=== PATIENT | female | born 1990 | race Hispanic/Latino ===

== ENCOUNTER 2017-12-23 08:37 | Emergency (ER) | payer OTHER, SELFPAY ==
[2017-12-23] MEDS ORDERED: NA CHLORIDE 0.9% 1,000 ML ONE (09:00)
[2017-12-23] MEDS ORDERED: KETOROLAC 30 MG/ML INJ ONE (09:05)
[2017-12-23 09:20] LABS: Absolute Lymphocytes (CBC) 0.8 K/uL (0.7-4.9); Absolute Monocytes 0.8 K/uL (0.1-1.3); Absolute Neutrophil 10.5 K/uL (1.8-8.0); Basophils % 0.2 % (0-1.3); Eosinophils % 0.7 % (0-4.4); Hematocrit 42.7 % (36.0-45.0); Lymphocytes % 6.6 % (15.3-44.8); MCH 29.4 pg (27.0-35.0); MCV 87.4 fL (80-100); Monocytes % 6.9 % (3.3-12.3); RBC Red Blood Cell Count 4.89 M/uL (3.86-4.86)
[2017-12-23 09:35] LABS: Potassium 3.4 mmol/L (3.5-5.1)
[2017-12-23 09:39] LABS: Urine Blood NEGATIVE (NEG); Urine Glucose NEGATIVE (NEG); Urine Protein 1+ (NEG); Urine Specific Gravity 1.025 (1.005-1.030)
--- NOTE | 2017-12-23 10:39 | RAD REPORT ---
EXAM DESCRIPTION: CT - Stone Protocol - 12/23/2017 9:25 am CLINICAL HISTORY: Abdominal pain/left lower quadrant pain for 3 days COMPARISON: None TECHNIQUE: Computed axial tomography of the abdomen pelvis was obtained without oral or IV contrast. Lack of IV and oral contrast limits evaluation of solid organs, bowel, and vessels. Coronal reformat carol images were obtained and reviewed. All CT scans are performed using dose optimization technique as appropriate and may include automated exposure control or mA/KV adjustment according to patient size. FINDINGS: Multiple, small bilateral renal calculi are present. Hydronephrosis is not seen. A 1 danielle meter calculus is suspected within the mid left ureter. The liver, spleen, pancreas and adrenals appear grossly normal There is no evidence of diverticulitis. The appendix appears normal Small nodular densities are within posterior for of within the ischial rectal fossa which likely is b enign. IMPRESSION: 1 millimeter nonobstructing left ureteral calculus. Small bilateral renal calculi
[2017-12-23 10:55] LABS: Platelet Estimate ADEQ; Urine White Blood Cell Casts OK
--- NOTE | 2017-12-23 10:56 | EDPHYS ---
Physician Documentation [facility] Name: Manuela Romo Age: 27 yrs Sex: Female : 1990 Arrival Date: 12/23/2017 Time: 08:39 Bed 5 Private MD: Louis Painting M ED Physician Mikey Frost HPI: 12/23 08:55 This 27 yrs old Female presents to ER via Ambulatory with complaints of kb Possible Kidney Stone. 08:55 The patient complains of pain in the left flank. The pain does not radiate. Onset: The kb symptoms/episode began/occurred 2 day(s) ago. Modifying factors: The symptoms are alleviated by nothing. the symptoms are aggravated by palpation/percussion. Associated signs and symptoms: Pertinent positives: nausea, vomiting. Severity of pain: At its worst the pain was moderate in the emergency department the pain is unchanged. The patient has experienced a previous episode, but today's symptoms are worse. The patient has been recently seen by a physician:. Pt states abd cramping started 2 days ago and now the pain is in left flank. States she has had a kidney stone in the past and it feels the same. Reports she has been vomiting once every morning for a month. Went to pcp 2 days ago and was told to go to [facility]. Saw Dr Cantrell and was told to come to the ER for continued symptoms. Historical: - Allergies: 08:52 No Known Allergies; hb - Home Meds: 08:52 fluoxetine 20 mg Oral cap [Active]; hb - PMHx: 08:52 None; hb - PSHx: 08:52 None; hb - Immunization history:: Adult Immunizations up to date. - Social history:: Smoking status: Patient/guardian denies using tobacco. - Ebola Screening: : No symptoms or risks identified at this time. ROS: 08:55 Constitutional: Negative for fever, chills, and weight loss, Cardiovascular: Negative kb for chest pain, palpitations, and edema, Respiratory: Negative for shortness of breath, cough, wheezing, and pleuritic chest pain, MS/Extremity: Negative for injury and deformity, Skin: Negative for injury, rash, and discoloration, Neuro: Negative for headache, weakness, numbness, tingling, and seizure. 08:55 Abdomen/GI: Positive for nausea and vomiting, Negative for abdominal pain, diarrhea, constipation, abdominal cramps, abdominal distension, anorexia. 08:55 Back: Positive for flank pain, on the left. Exam: 08:55 Constitutional: This is a well developed, well nourished patient who is awake, alert, kb and in no acute distress. Head/Face: Normocephalic, atraumatic. Chest/axilla: Normal chest wall appearance and motion. Nontender with no deformity. No lesions are appreciated. Cardiovascular: Regular rate and rhythm with a normal S1 and S2. No gallops, murmurs, or rubs. Normal PMI, no JVD. No pulse deficits. Respiratory: Lungs have equal breath sounds bilaterally, clear to auscultation and percussion. No rales, rhonchi or wheezes noted. No increased work of breathing, no retractions or nasal flaring. Abdomen/GI: Soft, non-tender, with normal bowel sounds. No distension or tympany. No guarding or rebound. No evidence of tenderness throughout. Skin: Warm, dry with normal turgor. Normal color with no rashes, no lesions, and no evidence of cellulitis. MS/ Extremity: Pulses equal, no cyanosis. Neurovascular intact. Full, normal range of motion. Neuro: Awake and alert, GCS 15, oriented to person, place, time, and situation. Cranial nerves II-XII grossly intact. Motor strength 5/5 in all extremities. Sensory grossly intact. Cerebellar exam normal. Normal gait. 08:55 Back: pain, that is moderate, of the left flank, CVA tenderness, that is moderate, is noted on the left. Vital Signs: 08:49 BP 116 / 90; Pulse 102; Resp 16; Temp 99; Pulse Ox 100% on R/A; Pain 4/10; hb 10:31 BP 93 / 58; Pulse 81; Resp 16; Pulse Ox 97% ; sv MDM: 08:42 Patient medically screened. kb 09:00 Data reviewed: vital signs, nurses notes. Data interpreted: Pulse oximetry: on room air kb is 100 %. Interpretation: normal. 10:50 Counseling: I had a detailed discussion with the patient and/or guardian regarding: the kb historical points, exam findings, and any diagnostic results supporting the discharge/admit diagnosis, lab results, radiology results, the need for outpatient follow up, a family practitioner, to return to the emergency department if symptoms worsen or persist or if there are any questions or concerns that arise at home. 12/23 08:50 Order name: Basic Metabolic Panel; Complete Time: 09:35 kb 12/23 08:50 Order name: CBC with Diff; Complete Time: 10:57 kb 12/23 08:55 Order name: CT Stone Protocol; Complete Time: 10:50 kb 12/23 09:01 Order name: Urine Dipstick--Ancillary (enter results); Complete Time: 09:40 eb 12/23 09:01 Order name: Urine --Ancillary (enter results); Complete Time: 09:40 eb 12/23 09:21 Order name: CBC Smear Scan; Complete Time: 10:57 EDMS 12/23 08:50 Order name: Urine Test (obtain specimen); Complete Time: 08:54 kb 12/23 08:50 Order name: IV Saline Lock; Complete Time: 09:10 kb 12/23 08:50 Order name: Labs collected and sent; Complete Time: 09:10 kb 12/23 08:50 Order name: Urine Dipstick-Ancillary (obtain specimen); Complete Time: 08:54 kb Administered Medications: 09:00 Drug: NS 0.9% 1000 ml Route: IV; Rate: 1000 ml; Site: right antecubital; hb 11:15 Follow up: Response: No adverse reaction; IV Status: Completed infusion hb 09:03 Drug: TORadol 30 mg Route: IVP; Site: right antecubital; sv 09:45 Follow up: Response: No adverse reaction; Pain is decreased hb 11:15 Drug: Potassium Chloride 20 mEq Route: PO; hb 11:15 Follow up: Response: Medication administered at discharge. hb 11:15 Drug: [place] 5 mg-325 mg 1 tabs Route: PO; hb 11:15 Follow up: Response: Medication administered at discharge. hb Disposition: 16:47 Co-signature as Attending Physician, Mikey Frost MD. rn Disposition: 12/23/17 10:55 Discharged to Home. Impression: Calculus of kidney. - Condition is Stable. - Discharge Instructions: Kidney Stones, [id number]. - Prescriptions for Zofran 4 mg Oral Tablet - take 1 tablet by ORAL route every 6 hours As needed; 20 tablet. Diclofenac Sodium 75 mg Oral Tablet, Delayed Release (E.C.) - take 1 tablet by ORAL route 2 times per day As needed; 30 tablet. Macrobid 100 mg Oral Capsule - take 1 capsule by ORAL route every 12 hours for 7 days; 14 capsule. - Medication Reconciliation Form, Thank You Letter, Antibiotic Education, Prescription Opioid Use form. - Follow up: Emergency Department; When: As needed; Reason: Worsening of condition. Follow up: Private Physician; When: 2 - 3 days; Reason: Recheck today's complaints, Continuance of care, Re-evaluation by your physician. Signatures: Dispatcher [employer] EDWA Smiley Blunt, FUTURES TRADER-C FUTURES TRADER-Barbie Teran, RN RN Mikey Yeager MD MD rn Baxter, Heather, RN RN hb Corrections: (The following items were deleted from the chart) 11:16 10:55 12/23/2017 10:55 Discharged to Home. Impression: Calculus of kidney. Condition is hb Stable. Forms are Medication Reconciliation Form, Thank You Letter, Antibiotic Education, Prescription Opioid Use. Follow up: Emergency Department; When: As needed; Reason: Worsening of condition. Follow up: Private Physician; When: 2 - 3 days; Reason: Recheck today's complaints, Continuance of care, Re-evaluation by your physician. kb
--- NOTE | 2017-12-23 10:56 | ER ---
Nurse's Notes [facility] Name: Manuela Romo Age: 27 yrs Sex: Female : 1990 Arrival Date: 12/23/2017 Time: 08:39 Bed 5 Private MD: Louis Painting M Diagnosis: Calculus of kidney Presentation: 12/23 08:49 Presenting complaint: Patient states: LLQ pain x 3 days that resolved yesterday, left hb flank pain today. TMAX 102. Transition of care: patient was not received from another setting of care. Onset of symptoms was December 20, 2017. Risk Assessment: Do you want to hurt yourself or someone else? Patient reports no desire to harm self or others. Care prior to arrival: None. 08:49 Method Of Arrival: Ambulatory hb 08:49 Acuity: PIPPA 3 hb 09:00 Initial Sepsis Screen: Does the patient meet any 2 criteria? No. Patient's initial hb sepsis screen is negative. Does the patient have a suspected source of infection? No. Patient's initial sepsis screen is negative. 11:15 Initial Sepsis Screen:. cc3 Historical: - Allergies: 08:52 No Known Allergies; hb - Home Meds: 08:52 fluoxetine 20 mg Oral cap [Active]; hb - PMHx: 08:52 None; hb - PSHx: 08:52 None; hb - Immunization history:: Adult Immunizations up to date. - Social history:: Smoking status: Patient/guardian denies using tobacco. - Ebola Screening: : No symptoms or risks identified at this time. Screenin:52 Abuse screen: Denies threats or abuse. Denies injuries from another. Nutritional hb screening: No deficits noted. Tuberculosis screening: No symptoms or risk factors identified. Fall Risk None identified. Assessment: 08:52 General: Appears in no apparent distress. Behavior is cooperative, anxious, crying. hb Pain: Pain currently is 4 out of 10 on a pain scale. Neuro: Level of Consciousness is awake, alert, obeys commands, Oriented to person, place, time, situation. Cardiovascular: Capillary refill < 3 seconds Patient's skin is warm and dry. Respiratory: Airway is patent Trachea midline Respiratory effort is even, unlabored, Respiratory pattern is regular, symmetrical, Breath sounds are clear bilaterally. GI: Abdomen is flat, Bowel sounds present X 4 quads. Abd is soft and non tender X 4 quads. : Reports urinary frequency. EENT: No signs and/or symptoms were reported regarding the EENT system. Derm: Skin is intact, is healthy with good turgor. Musculoskeletal: No signs and/or symptoms reported regarding the musculoskeletal system. 09:45 Reassessment: Patient appears in no apparent distress at this time. Patient and/or hb family updated on plan of care and expected duration. Pain level reassessed. Patient is alert, oriented x 3, equal unlabored respirations, skin warm/dry/pink. 10:45 Reassessment: Patient appears in no apparent distress at this time. Patient and/or hb family updated on plan of care and expected duration. Pain level reassessed. Patient is alert, oriented x 3, equal unlabored respirations, skin warm/dry/pink. Vital Signs: 08:49 BP 116 / 90; Pulse 102; Resp 16; Temp 99; Pulse Ox 100% on R/A; Pain 4/10; hb 10:31 BP 93 / 58; Pulse 81; Resp 16; Pulse Ox 97% ; sv ED Course: 08:39 Patient arrived in ED. sb2 08:40 Louis Painting MD is Private Physician. sb2 08:42 Smiley Blunt [facility]C [facility]. kb 08:42 Mikey Frost MD is Attending Physician. kb 08:50 Triage completed. hb 08:52 Arm band placed on right wrist. hb 08:52 Patient has correct armband on for positive identification. Placed in gown. Bed in low hb position. Call light in reach. Side rails up X 1. 09:09 Vanessa Jackson, RN is Primary Nurse. hb 09:20 CT completed. Patient tolerated procedure well. Patient moved to CT via wheelchair. jg6 09:25 CT Stone Protocol In Process Unspecified. EDMS 11:10 No provider procedures requiring assistance completed. IV discontinued, intact, cc3 bleeding controlled, No redness/swelling at site. Pressure dressing applied. Administered Medications: 09:00 Drug: NS 0.9% 1000 ml Route: IV; Rate: 1000 ml; Site: right antecubital; hb 11:15 Follow up: Response: No adverse reaction; IV Status: Completed infusion hb 09:03 Drug: TORadol 30 mg Route: IVP; Site: right antecubital; sv 09:45 Follow up: Response: No adverse reaction; Pain is decreased hb 11:15 Drug: Potassium Chloride 20 mEq Route: PO; hb 11:15 Follow up: Response: Medication administered at discharge. hb 11:15 Drug: [place] 5 mg-325 mg 1 tabs Route: PO; hb 11:15 Follow up: Response: Medication administered at discharge. hb Outcome: 10:55 Discharge ordered by . kb 11:10 Discharged to home ambulatory. cc3 11:10 Condition: stable 11:10 Discharge instructions given to patient, Instructed on discharge instructions, follow up and referral plans. medication usage, Demonstrated understanding of instructions, follow-up care, medications, Prescriptions given X 3. 11:16 Patient left the ED. hb Signatures: Dispatcher [employer] EDMS Smiley Blunt, CLAUDIO GONZALES-Barbie Teran, RN RN Vanessa Larkin RN RN Madison Pacheco2 Erum Ferrera3 Yvonne Trotter [email or web address]
[2017-12-23 10:57] LABS: Blood Morphology Comment NOT SEEN (NOT SEEN)
[2017-12-23] MEDS ORDERED: HYDROCODONE/APAP 5/325 MG TAB ONE (11:13)
[2017-12-23] MEDS ORDERED: POTASSIUM CL SA 10 MEQ TAB PO ONE (11:13)
[2017-12-23 11:21] VITALS: TEMP 99
[2017-12-23 11:22] VITALS: BP 93/58; O2SAT 97
== END 2017-12-23 11:16 | disposition home or self-care (01) ==
LOC: ER 08:37
DX: N20.0 Calculus of kidney (principal); Z87.442 Personal history of urinary calculi
CPT/HCPCS: 36415; 74176; 76377; 80048; 81003; 81025; 85025; 96361; 96374; 99284; J7030

== ENCOUNTER 2020-10-07 05:33 | Emergency (ER) | payer SELFPAY ==
[2020-10-07 06:22] LABS: Absolute Lymphocytes (CBC) 3.9 K/uL (0.7-4.9); Basophils % 1.2 % (0-1.3); Hematocrit 41.4 % (36.0-45.0); Lymphocytes % 41.8 % (15.3-44.8); MPV 8.2 fL (7.6-11.3); RBC Red Blood Cell Count 4.64 M/uL (3.86-4.86)
[2020-10-07] MEDS ORDERED: ONDANSETRON 4 MG/2 ML VIAL ONE ×2 (06:24→09:20)
[2020-10-07] MEDS ORDERED: MORPHINE 4 MG/ML SYR ONE (06:24)
[2020-10-07] MEDS ORDERED: NA CHLORIDE 0.9% 1,000 ML ONE ×2 (06:32→08:58)
[2020-10-07] MEDS ORDERED: KETOROLAC 30 MG/ML INJ ONE (06:32)
[2020-10-07 06:35] LABS: ALT/SGPT 37 U/L (12-78); AST/SGOT 25 U/L (15-37); Albumin 4.1 g/dL (3.4-5.0); Alkaline Phosphatase 69 U/L (45-117); BUN Blood Urea Nitrogen 16 mg/dL (7-18); Bicarbonate 21 mmol/L (21-32); Bilirubin Direct < 0.1 mg/dL (0-0.2); Bilirubin Total 0.3 mg/dL (0.2-1.0); Glucose Level 129 mg/dL (74-106); Lipase 116 U/L (73-393); Potassium 3.9 mmol/L (3.5-5.1); Protein, Total 7.5 g/dL (6.4-8.2); Sodium Level 142 mmol/L (136-145)
[2020-10-07 08:14] LABS: Urine Blood 3+ (Negative); Urine Glucose Negative (Negative); Urine Protein 1+ (Negative); Urine pH 7.5 (5.0-7.0)
--- NOTE | 2020-10-07 08:44 | RAD REPORT ---
EXAM DESCRIPTION: CT - Stone Protocol - 10/07/2020 8:27 am CLINICAL HISTORY: Flank pain. Abd pain;Flank pain COMPARISON: Stone Protocol dated 12/23/2017 TECHNIQUE: Axial images were obtained without oral or IV contrast. Lack of contrast limits solid org an and vascular assessment. The [id number] spans the entirety of the system partially obscuring uppermost abdomen and lung bases. Coronal reformatted images were obtained and reviewed. All CT scans are performed using dose optimization technique as appropriate and may include automated exposure control or mA/KV adjustment according to patient size. FINDINGS: The lower lung ward are clear. Imaged portions of the liver and spleen show no suspicious findings on non-contrast imaging. The panc reas and adrenal glands are normal. No pathologic lymphadenopathy in the abdomen or pelvis. 3 mm calculus suspected distal right ureter with moderate right hydronephrosis and hydroureter presen t. Additional small caliceal stones are present bilaterally. No bowel obstruction, free air, free fluid or abscess. Normal appendix noted. No significant bony abnormality. Extensive subcutaneous nodules have developed in both gluteal region as well as inferior pelvic fat extending to the perineal region. This is of unclear etiology. IMPRESSION: 3 mm calculus distal right ureter with moderate right hydronephrosis and hydroureter. Development of extensive small soft tissue nodules since 2018 study as detailed. This finding is of u nclear etiology and clinical correlation is needed.
[2020-10-07] MEDS ORDERED: CEFTRIAXONE/SWI 1gm 1 GM/10 ML SYR ONE (08:58)
[2020-10-07] MEDS ORDERED: TAMSULOSIN 0.4 MG SR CAP ONE (08:58)
--- NOTE | 2020-10-07 09:04 | ER ---
Nurse's Notes [facility] Name: Manuela Romo Age: 30 yrs Sex: Female : 1990 Arrival Date: 10/07/2020 Time: 05:36 Bed 20 Private MD: Diagnosis: Hydronephrosis with renal and ureteral calculous obstruction Presentation: 10/07 05:45 Chief complaint: Patient states: she is having severe back pain which radiates to her bb abdomen. Coronavirus screen: At this time, the client does not indicate any symptoms associated with coronavirus-19. Ebola Screen: No symptoms or risks identified at this time. 05:45 Method Of Arrival: Ambulatory bb 05:50 Initial Sepsis Screen: Does the patient meet any 2 criteria? No. Patient's initial bb sepsis screen is negative. Does the patient have a suspected source of infection? No. Patient's initial sepsis screen is negative. Risk Assessment: Do you want to hurt yourself or someone else? Patient reports no desire to harm self or others. Onset of symptoms was October 06, 2020. 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 - Social history:: Smoking status: unknown. Screenin:06 Abuse screen: Denies threats or abuse. Nutritional screening: No deficits noted. fu Tuberculosis screening: No symptoms or risk factors identified. Fall Risk Ambulatory Aid- None/Bed Rest/Nurse Assist (0 pts). Gait- Normal/Bed Rest/Wheelchair (0 pts) Mental Status- Oriented to own ability (0 pts). Total Wilkes Fall Scale indicates No Risk (0-24 pts). Assessment: 05:59 General: Appears uncomfortable, Behavior is cooperative, anxious. Pain: Complains of fu pain in backpain Pain radiates to abdomen Pain currently is 10 out of 10 on a pain scale. Pain began 1 day ago. Neuro: Level of Consciousness is awake, alert, obeys commands, Oriented to person, place, time, situation, Inventory Clerk are equal bilaterally Moves all extremities. Gait is unsteady, Speech is normal, Facial symmetry appears normal. Cardiovascular: Denies chest pain. 07:05 Reassessment: Patient appears in no apparent distress at this time. Patient and/or fu family updated on plan of care and expected duration. Pain level reassessed. Patient is alert, oriented x 3, equal unlabored respirations, skin warm/dry/pink. Patient states feeling better. Patient states symptoms have improved. Pain: Complains of pain in back Pain radiates to abdomen. Neuro: Level of Consciousness is awake, alert, obeys commands, Oriented to person, place, time, situation. Cardiovascular: Denies chest pain, Capillary refill Patient's skin is warm and dry. Respiratory: Airway is patent Respiratory effort is even, unlabored, Respiratory pattern is regular, symmetrical. GI: Abdomen is non-distended, Abd is soft and non tender X 4 quads. 08:07 Reassessment: Patient appears in no apparent distress at this time. Patient and/or jd3 family updated on plan of care and expected duration. Pain level reassessed. Patient is alert, oriented x 3, equal unlabored respirations, skin warm/dry/pink. Patient states feeling better. 09:09 Reassessment: Patient appears in no apparent distress at this time. Patient and/or jd3 family updated on plan of care and expected duration. Pain level reassessed. Patient is alert, oriented x 3, equal unlabored respirations, skin warm/dry/pink. pt reporting pain returned. medicated for pain and discharge pending IV fluid infusion. Vital Signs: 05:50 BP 130 / 82; Pulse 66; Resp 20 S; Temp 97.7(O); Pulse Ox 100% on R/A; Weight 54.43 kg bb (R); Height 5 ft. 2 in. (157.48 cm) (R); Pain 10/10; 07:04 BP 114 / 84; Pulse 53; Resp 19 S; Pulse Ox 100% on R/A; fu 08:08 BP 119 / 93; Pulse 57; Resp 16 S; Pulse Ox 100% on R/A; jd3 09:09 BP 123 / 89; Pulse 62; Resp 17 S; Pulse Ox 100% on R/A; jd3 05:50 Body Mass Index 21.95 (54.43 kg, 157.48 cm) bb ED Course: 05:36 Patient arrived in ED. es 05:42 Db Emery, RN is Primary Nurse. fu 05:42 Jason Peterson MD is Attending Physician. oralia 05:50 Arm band placed on Patient placed in an exam room, on a stretcher, on pulse oximetry. bb Family accompanied patient. 05:57 Triage completed. bb 06:30 Hepatic Function Sent. fu 06:30 CBC with Diff Sent. fu 06:30 Basic Metabolic Panel Sent. fu 07:06 Patient has correct armband on for positive identification. Bed in low position. Call fu light in reach. Side rails up X 1. Adult w/ patient. Pulse ox on. NIBP on. 08:07 Radiology exam delayed due to test not completed at this time. 08:27 CT Stone Protocol In Process Unspecified. EDMS 09:04 Javan Esposito MD is Referral Physician. oralia 09:48 No provider procedures requiring assistance completed. IV discontinued, intact, iw bleeding controlled, No redness/swelling at site. Pressure dressing applied. Administered Medications: 06:09 Drug: morphine 4 mg Route: IVP; Site: right antecubital; fu 06:40 Follow up: Response: Pain is decreased fu 06:09 Drug: Zofran (Ondansetron) 4 mg Route: IVP; Site: right antecubital; fu 06:40 Follow up: Response: No adverse reaction fu 06:15 Drug: NS 0.9% 1000 ml Route: IV; Rate: 1 bolus; Site: right antecubital; fu 06:16 Drug: TORadol (ketorolac) 30 mg Route: IVP; Site: right antecubital; fu 06:40 Follow up: Response: Pain is decreased fu 08:56 Drug: NS 0.9% 1000 ml Route: IV; Rate: 1 bolus; Site: right antecubital; jd3 08:56 Drug: Rocephin (cefTRIAXone) 1 grams Route: IV; Rate: per protocol; Site: right jd3 antecubital; 08:56 Drug: Flomax (tamsulosin) 0.4 mg Route: PO; jd3 09:07 Drug: Dilaudid (HYDROmorphone) 1 mg Route: IVP; Site: right antecubital; jd3 09:07 Drug: Zofran (Ondansetron) 4 mg Route: IVP; Site: right antecubital; jd3 Outcome: 09:04 Discharge ordered by . oralia 09:48 Discharged to home ambulatory, with family. iw 09:48 Condition: good 09:48 Discharge instructions given to patient, Instructed on discharge instructions, follow up and referral plans. medication usage, Demonstrated understanding of instructions, follow-up care, medications, Prescriptions given X 4. 09:49 Patient left the ED. iw Signatures: Dispatcher [employer] EDTN Jason Peterson MD MD cha Salyer, Jocelyne Uriarte Brenda, RN RN bb Adriana Wade RN RN Kwame Calderon RN RN jd3 Umadhay, Felix, RN RN fu Corrections: (The following items were deleted from the chart) 07:05 07:04 BP 114 / 84; Pulse 53bpm; Resp 19bpm; Spontaneous; Pulse Ox 100% RA; fu fu 07:14 07:05 Reassessment: Patient appears in no apparent distress at this time. Patient jd3 and/or family updated on plan of care and expected duration. Pain level reassessed. Patient is alert, oriented x 3, equal unlabored respirations, skin warm/dry/pink. Patient states feeling better. fu 07:15 07:05 Pain: Complains of pain in back Pain radiates to abdomen fu jd3 08:07 07:05 Reassessment: Patient appears in no apparent distress at this time. Patient jd3 and/or family updated on plan of care and expected duration. Pain level reassessed. Patient is alert, oriented x 3, equal unlabored respirations, skin warm/dry/pink. Patient states feeling better. jd3
--- NOTE | 2020-10-07 09:04 | EDPHYS ---
Physician Documentation [facility] Name: Manuela Romo Age: 30 yrs Sex: Female : 1990 Arrival Date: 10/07/2020 Time: 05:36 Bed 20 Private MD: ED Physician Jason Peterson HPI: 10/07 05:59 This 30 yrs old Female presents to ER via Ambulatory with complaints of Hands oralia tingling,back pain, abd pain, unable to move hands. 05:59 The patient complains of pain in the left low back and left mid back. The patient oralia complains of pain in the right mid back and right low back. The pain does not radiate. Onset: The symptoms/episode began/occurred just prior to arrival. Modifying factors: The symptoms are alleviated by nothing. the symptoms are aggravated by nothing. Associated signs and symptoms: The patient has no apparent associated signs or symptoms. Severity of pain: At its worst the pain was moderate severe in the emergency department the pain is unchanged. The patient has not experienced similar symptoms in the past. 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 - Social history:: Smoking status: unknown. ROS: 06:00 Constitutional: Negative for fever, chills, and weight loss, Eyes: Negative for injury, oralia pain, redness, and discharge, ENT: Negative for injury, pain, and discharge, Neck: Negative for injury, pain, and swelling, Cardiovascular: Negative for chest pain, palpitations, and edema, Respiratory: Negative for shortness of breath, cough, wheezing, and pleuritic chest pain, : Negative for injury, bleeding, discharge, and swelling, MS/Extremity: Negative for injury and deformity, Skin: Negative for injury, rash, and discoloration, Neuro: Negative for headache, weakness, numbness, tingling, and seizure, Psych: Negative for depression, anxiety, suicide ideation, homicidal ideation, and hallucinations, Allergy/Immunology: Negative for hives, rash, and allergies, Endocrine: Negative for neck swelling, polydipsia, polyuria, polyphagia, and marked weight changes. 06:00 Abdomen/GI: Positive for abdominal pain, nausea, vomiting, of the posterior aspect of right lateral abdomen, anterior aspect of right lateral abdomen, right upper quadrant and right lower quadrant. Exam: 06:00 Constitutional: This is a well developed, well nourished patient who is awake, alert, oralia and in no acute distress. Head/Face: Normocephalic, atraumatic. Eyes: Pupils equal round and reactive to light, extra-ocular motions intact. Lids and lashes normal. Conjunctiva and sclera are non-icteric and not injected. Cornea within normal limits. Periorbital areas with no swelling, redness, or edema. ENT: Nares patent. No nasal discharge, no septal abnormalities noted. Tympanic membranes are normal and external auditory canals are clear. Oropharynx with no redness, swelling, or masses, exudates, or evidence of obstruction, uvula midline. Mucous membranes moist. Neck: Trachea midline, no thyromegaly or masses palpated, and no cervical lymphadenopathy. Supple, full range of motion without nuchal rigidity, or vertebral point tenderness. No Meningismus. Chest/axilla: Normal chest wall appearance and motion. Nontender with no deformity. No lesions are appreciated. Cardiovascular: Regular rate and rhythm with a normal S1 and S2. No gallops, murmurs, or rubs. Normal PMI, no JVD. No pulse deficits. Respiratory: Lungs have equal breath sounds bilaterally, clear to auscultation and percussion. No rales, rhonchi or wheezes noted. No increased work of breathing, no retractions or nasal flaring. Pelvic Exam: Normal external genitalia. Speculum exam with closed cervical os, no discharge or bleeding noted. Bimanual exam with normal adnexa, no adnexal or cervical motion tenderness. Normal uterus. Skin: Warm, dry with normal turgor. Normal color with no rashes, no lesions, and no evidence of cellulitis. MS/ Extremity: Pulses equal, no cyanosis. Neurovascular intact. Full, normal range of motion. Neuro: Awake and alert, GCS 15, oriented to person, place, time, and situation. Cranial nerves II-XII grossly intact. Motor strength 5/5 in all extremities. Sensory grossly intact. Cerebellar exam normal. Normal gait. 06:00 Abdomen/GI: Inspection: abdomen appears normal, Bowel sounds: normal, in all quadrants, Palpation: mild abdominal tenderness, in the posterior aspect of right lateral abdomen, anterior aspect of right lateral abdomen, right upper quadrant and right lower quadrant. Vital Signs: 05:50 BP 130 / 82; Pulse 66; Resp 20 S; Temp 97.7(O); Pulse Ox 100% on R/A; Weight 54.43 kg bb (R); Height 5 ft. 2 in. (157.48 cm) (R); Pain 10/10; 07:04 BP 114 / 84; Pulse 53; Resp 19 S; Pulse Ox 100% on R/A; fu 08:08 BP 119 / 93; Pulse 57; Resp 16 S; Pulse Ox 100% on R/A; jd3 09:09 BP 123 / 89; Pulse 62; Resp 17 S; Pulse Ox 100% on R/A; jd3 05:50 Body Mass Index 21.95 (54.43 kg, 157.48 cm) MDM: 05:42 Patient medically screened. [facility] 06:01 Differential diagnosis: nephrolithiasis, pyelonephritis, UTI. Data reviewed: vital oralia signs, nurses notes, lab test result(s), radiologic studies, CT scan. Data interpreted: lunchroom monitor: rate is 66 beats/min, rhythm is regular, Pulse oximetry: is not applicable for this patient encounter. Test interpretation: by ED physician or midlevel provider: plain radiologic studies. Counseling: I had a detailed discussion with the patient and/or guardian regarding: the historical points, exam findings, and any diagnostic results supporting the discharge/admit diagnosis, lab results. 10/07 05:58 Order name: Basic Metabolic Panel [facility] 10/07 05:58 Order name: CBC with Diff [facility] 10/07 05:58 Order name: Hepatic Function [facility] 10/07 05:58 Order name: Lipase; Complete Time: 08:09 [facility] 10/07 05:58 Order name: Urine Culture [facility] 10/07 05:59 Order name: Basic Metabolic Panel; Complete Time: 08:09 EDMT 10/07 05:58 Order name: CT Stone Protocol; Complete Time: 09:03 [facility] 10/07 05:59 Order name: CBC with Automated Diff; Complete Time: 08:09 EDMT 10/07 05:59 Order name: Liver (Hepatic) Function; Complete Time: 08:09 EDMS 10/07 08:14 Order name: Urine Dipstick-Ancillary; Complete Time: 09:03 EDMS 10/07 08:23 Order name: Urine --Ancillary (enter results) 10/07 05:58 Order name: IV Saline Lock; Complete Time: 06:30 [facility] 10/07 05:58 Order name: Labs collected and sent; Complete Time: 06:30 [facility] 10/07 05:58 Order name: Urine Dipstick-Ancillary (obtain specimen); Complete Time: 08:22 [facility] 10/07 05:58 Order name: Urine Test (obtain specimen); Complete Time: 08:22 [facility] Administered Medications: 06:09 Drug: morphine 4 mg Route: IVP; Site: right antecubital; fu 06:40 Follow up: Response: Pain is decreased fu 06:09 Drug: Zofran (Ondansetron) 4 mg Route: IVP; Site: right antecubital; fu 06:40 Follow up: Response: No adverse reaction fu 06:15 Drug: NS 0.9% 1000 ml Route: IV; Rate: 1 bolus; Site: right antecubital; fu 06:16 Drug: TORadol (ketorolac) 30 mg Route: IVP; Site: right antecubital; fu 06:40 Follow up: Response: Pain is decreased fu 08:56 Drug: NS 0.9% 1000 ml Route: IV; Rate: 1 bolus; Site: right antecubital; jd3 08:56 Drug: Rocephin (cefTRIAXone) 1 grams Route: IV; Rate: per protocol; Site: right jd3 antecubital; 08:56 Drug: Flomax (tamsulosin) 0.4 mg Route: PO; jd3 09:07 Drug: Dilaudid (HYDROmorphone) 1 mg Route: IVP; Site: right antecubital; jd3 09:07 Drug: Zofran (Ondansetron) 4 mg Route: IVP; Site: right antecubital; jd3 Disposition: 10/07/20 09:04 Discharged to Home. Impression: Hydronephrosis with renal and ureteral calculous obstruction. - Condition is Stable. - Discharge Instructions: Kidney Stones, Kidney Stones, [id number], Hydronephrosis, Dietary Guidelines to Help Prevent Kidney Stones. - Prescriptions for Tylenol- Codeine #3 300-30 mg Oral Tablet - take 2 tablets by ORAL route every 4-6 hours As needed; 26 tablet. Zofran 4 mg Oral Tablet - take 1 tablet by ORAL route every 12 hours As needed; 20 tablet. Flomax 0.4 mg Oral Capsule, Sust. Release 24 hr - take 1 capsule by ORAL route once daily 1/2 hour following the same meal each day; 30 capsule. Cipro 500 mg Oral Tablet - take 1 tablet by ORAL route every 12 hours for 7 days; 14 tablet. - Medication Reconciliation Form, Thank You Letter, Antibiotic Education, Prescription Opioid Use, Family Work Release form. - Follow up: Private Physician; When: 2 - 3 days; Reason: Recheck today's complaints, Continuance of care, Re-evaluation by your physician. Follow up: Javan Esposito; When: 2 - 3 days; Reason: Recheck today's complaints, Re-evaluation by your physician. - Problem is new. - Symptoms have improved. Signatures: Dispatcher [employer] EDJason Ramirez MD MD cha Ballard, Brenda, RN RN Adriana Boilvar RN RN iw Davies, Jonathon, RN RN jDb Grijalva RN GUILLERMO fu Corrections: (The following items were deleted from the chart) 09:49 09:04 10/07/2020 09:04 Discharged to Home. Impression: Hydronephrosis with renal and iw ureteral calculous obstruction. Condition is Stable. Discharge Instructions: Kidney Stones, Kidney Stones, [id number], Hydronephrosis, Dietary Guidelines to Help Prevent Kidney Stones. Prescriptions for Tylenol-Codeine #3 300-30 mg Oral Tablet - take 2 tablets by ORAL route every 4-6 hours As needed; 26 tablet, Zofran 4 mg Oral Tablet - take 1 tablet by ORAL route every 12 hours As needed; 20 tablet, Flomax 0.4 mg Oral Capsule, Sust. Release 24 hr - take 1 capsule by ORAL route once daily 1/2 hour following the same meal each day; 30 capsule, Cipro 500 mg Oral Tablet - take 1 tablet by ORAL route every 12 hours for 7 days; 14 tablet. and Forms are Medication Reconciliation Form, Thank You Letter, Antibiotic Education, Prescription Opioid Use. Follow up: Private Physician; When: 2 - 3 days; Reason: Recheck today's complaints, Continuance of care, Re-evaluation by your physician. Follow up: Javan Esposito; When: 2 - 3 days; Reason: Recheck today's complaints, Re-evaluation by your physician. Problem is new. Symptoms have improved. oralia
[2020-10-07] MEDS ORDERED: HYDROMORPHONE HCL 1 MG/ML INJ ONE (09:20)
[2020-10-07 10:03] VITALS: TEMP 97.7; O2SAT 100
[2020-10-07 10:09] VITALS: BP 123/89
== END 2020-10-07 09:49 | disposition home or self-care (01) ==
LOC: ER 05:33
DX: N13.2 Hydronephrosis with renal and ureteral calculous obstruction (principal); Z87.442 Personal history of urinary calculi
CPT/HCPCS: 36415; 74176; 76377; 80048; 80076; 81003; 81025; 83690; 85025; 87086; 87088; 96374; 96375; 99284; J0696; J1170; J2405; J7030

== ENCOUNTER 2022-04-13 14:25 | Emergency (ER) | payer SELFPAY ==
--- OUTSIDE RECORDS SUMMARY | 2022-04-13 14:31 | XMS REPORT | Continuity of Care Document ---
:1990 Author Organization [facility] t Address [address] [place] [address] Care Team Providers Name Role Phone Mike Gunter Primary Care Physician [phone] Haylee Feliz Attending Clinician Unavailable [email or web address] Attending Clinician Unavailable Kris Attending Clinician Unavailable Haylee Feliz Attending Clinician [phone] MIKE GREER Attending Clinician Unavailable Mike Gunter Attending Clinician [phone] LUIS CORBIN Attending Clinician Unavailable Faculty, [facility] Attending Clinician Unavailable Luis Corbin MD Attending Clinician 1, [facility] Attending Clinician Unavailable Jean Bauer MD Attending Clinician JEAN BAUER Attending Clinician Unavailable RONEY MORIN Attending Clinician Unavailable [facility] Attending Clinician Unavailable Doctor Unassigned, [place] Attending Clinician Unavailable Andrew GONZALES, Raysa Flores Attending Clinician RAYSA MORALES Attending Clinician Unavailable Roney Shankar Attending Clinician Keerthi Arciniega Attending Clinician Francisca Barnes MD Attending Clinician Res[facility]Colpo/[facility], [facility] Attending Clinician Unavailable Ray GRULLON, Christiano Lizarraga Attending Clinician Haylee Feliz Admitting Clinician Unavailable [email or web address] Admitting Clinician Unavailable [email or web address] Admitting Clinician Unavailable Payers Payer Name Policy Type Policy Number Effective Date Expiration Date Leander pulido [facility] [id number] [facility] (MEDICAID REPLACEMENT - HMO) [facility] [id number] [facility] MEDICAID 00:00:00 Problems Condition Condition Condition Status Onset Resolution Last Treating Co mments Source Name Details Category Date Date Treatment Clinician Date Cervical Cervical Problem Active [facility] cerclage Cerclage 6-20 Medica l suture Suture 00:00: present Present 00 BV BV Disease Active Univers (bacterial (bacterial 3-30 it y [place]in[place] [address] [place] [address] Vaginal Vaginal Disease Active Univers discharge discharge 3-29 ity of 00:00: [address] Multiparit Multiparit Disease Active U nivers y y 3-03 ity of 00:00: [address] Supervisio Supervisio Disease Active U nivers n of n of 3-03 [place] high[place] [facility] History of History of Disease Active Overview : Univers cervical cervical 3-03 Formattin ity of cerclage cerclage 00:00: g of this Rol[place] as 00 note Medical might be Branch different from the original. Reports placement with 2011, and 2017 babies History of History of Disease Active U nivers miscarriag miscarriag 3-03 it y of e e 00:00: [place] 00 [facility] Branch History of History of Disease Active Overview : Univers nicotine nicotine 3-03 Formattin ity of vaping vaping 00:00: g of this [place] 00 note Medical might be Branch different from the original. 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 History of History of Problem Active [facility] premature Premature Medi tito delivery Delivery Allergies, Adverse Reactions, Alerts Allergy Allergy Status Severity Reaction(s) Onset Inactive Treating Comm ents Source Name Type Date Date Clinician No Known DA Active U 2021-04 [facility] 00 [facility] No Known DA Active U 2021-04 [facility] Allergie 0-[facility] 00 [facility] No Known DA Active U [facility] Allergie 5-06 [facility] 00:[facility] 00 [facility] No Known DA Active U [facility] Allergie 4-12 [facility] 00:00: [facility] 00 l [facility] Social History Social Habit Start Date Stop Date Quantity Comments Source ASSERTION 2021-06-03 University of 00:00:00 [facility] History of tobacco 2003-12-22 Cigarette Smoker University of use 00:00:00 [facility] Exposure to Not sure University of SARS-CoV-2 (event) [facility] Tobacco Comment 2021-06-26 2021-06-26 Vapes daily Universi ty of 00:00:00 00:00:00 [facility] Alcohol intake 2021-06-26 2021-06-26 Ex-drinker University 00:00:00 00:00:00 (finding) [facility] Cigarettes smoked 2020-12-27 2020-12-27 Univers ity of current (pack per 00:00:00 00:00:00 ) - Reported Branch Tobacco use and 2020-12-27 2020-12-27 Current user Univers ity of exposure 00:00:00 00:00:00 [facility] Sex [birth year] Universit y of 00:00:00 00:00:00 [facility] Smoking Status Start Date Stop Date Source Former Smoker [facility] Medications Ordered Filled Start Stop Current Ordering Indication Dosage Frequency Signature Comments Components Source Medication Medication Date Date Medication? Clinician (SIG) Name Name Yes [id number] 1{tbl} Take 1 U nivers multivitami 3-03 tablet by itshelly boykin n ( 00:00: mouth [place] VITAMIN) 00 daily. Medical tablet Branch No [facility] Vitamin Vitamin 2-23 Vitamin Medica l 00:00: 00 No [facility] Vitamin Vitamin 2-23 Vitamin Medica l 00:00: 00 No [facility] Vitamin Vitamin 2-23 Vitamin Medica l 00:00: 00 0 No [facility] Vitamin Vitamin 2-23 Vitamin Medica l 00:00: 00 0 No [facility] Vitamin Vitamin 2-23 Vitamin Medica l 00:00: 00 0 No [facility] Vitamin Vitamin 2-23 Vitamin Medica l 00:00: 00 0 No [facility] Vitamin Vitamin 2-23 Vitamin Medica l 00:00: 00 0 No [facility] Vitamin Vitamin 2-23 Vitamin Medica l 00:00: 00 0 No [facility] Vitamin Vitamin 2-23 Vitamin Medica l 00:00: 00 0 No [facility] Vitamin Vitamin 2-23 Vitamin Medica l 00:00: 00 0 No [facility] Vitamin Vitamin 2-23 Vitamin Medica l 00:00: 00 0 No [facility] Vitamin Vitamin 2-23 Vitamin Medica l 00:00: 00 No [facility] Vitamin Vitamin 2-23 Vitamin Medica l 00:00: 00 No [facility] Vitamin Vitamin 2-23 Vitamin Medica l 00:00: 00 No [facility] Vitamin Vitamin 2-23 Vitamin Medica l 00:00: 00 acetaminoph acetaminoph No acetaminop [facility] en 300 en 300 hen 300 Medical mg-codeine mg-codeine mg-codeine 30 mg 30 mg 30 mg tablet TAKE tablet TAKE tablet 1 TABLET BY 1 TABLET BY TAKE 1 MOUTH EVERY MOUTH EVERY TABLET BY 6 HOURS 6 HOURS MOUTH NEEDED FOR NEEDED FOR EVERY 6 SEVERE PAIN SEVERE PAIN HOURS NEEDED FOR SEVERE PAIN Banophen 25 Banophen 25 No Banophen [facility] mg capsule mg capsule 25 mg Me dical capsule indomethaci indomethaci No indomethac [facility] n 25 mg n 25 mg in 25 mg Medic al capsule capsule capsule TAKE 1 TAKE 1 TAKE 1 CAPSULE BY CAPSULE BY CAPSULE BY MOUTH EVERY MOUTH EVERY MOUTH 6 HOURS 6 HOURS EVERY 6 HOURS mometasone mometasone No mometasone [facility] 0.1 % 0.1 % 0.1 % Medical topical topical topical cream cream cream acetaminoph acetaminoph No acetaminop [facility] en 300 en 300 hen 300 Medical mg-codeine mg-codeine mg-codeine 30 mg 30 mg 30 mg tablet TAKE tablet TAKE tablet 1 TABLET BY 1 TABLET BY TAKE 1 MOUTH EVERY MOUTH EVERY TABLET BY 6 HOURS 6 HOURS MOUTH NEEDED FOR NEEDED FOR EVERY 6 SEVERE PAIN SEVERE PAIN HOURS NEEDED FOR SEVERE PAIN Banophen 25 Banophen 25 No Banophen [facility] mg capsule mg capsule 25 mg Me dical capsule indomethaci indomethaci No indomethac [facility] n 25 mg n 25 mg in 25 mg Medic al capsule capsule capsule TAKE 1 TAKE 1 TAKE 1 CAPSULE BY CAPSULE BY CAPSULE BY MOUTH EVERY MOUTH EVERY MOUTH 6 HOURS 6 HOURS EVERY 6 HOURS mometasone mometasone No mometasone [facility] 0.1 % 0.1 % 0.1 % Medical topical topical topical cream cream cream acetaminoph acetaminoph No acetaminop [facility] en 300 en 300 hen 300 Medical mg-codeine mg-codeine mg-codeine 30 mg 30 mg 30 mg tablet TAKE tablet TAKE tablet 1 TABLET BY 1 TABLET BY TAKE 1 MOUTH EVERY MOUTH EVERY TABLET BY 6 HOURS 6 HOURS MOUTH NEEDED FOR NEEDED FOR EVERY 6 SEVERE PAIN SEVERE PAIN HOURS NEEDED FOR SEVERE PAIN Banophen 25 Banophen 25 No Banophen [facility] mg capsule mg capsule 25 mg Me dical capsule indomethaci indomethaci No indomethac [facility] n 25 mg n 25 mg in 25 mg Medic al capsule capsule capsule TAKE 1 TAKE 1 TAKE 1 CAPSULE BY CAPSULE BY CAPSULE BY MOUTH EVERY MOUTH EVERY MOUTH 6 HOURS 6 HOURS EVERY 6 HOURS mometasone mometasone No mometasone [facility] 0.1 % 0.1 % 0.1 % Medical topical topical topical cream cream cream acetaminoph acetaminoph No acetaminop [facility] en 300 en 300 hen 300 Medical mg-codeine mg-codeine mg-codeine 30 mg 30 mg 30 mg tablet TAKE tablet TAKE tablet 1 TABLET BY 1 TABLET BY TAKE 1 MOUTH EVERY MOUTH EVERY TABLET BY 6 HOURS 6 HOURS MOUTH NEEDED FOR NEEDED FOR EVERY 6 SEVERE PAIN SEVERE PAIN HOURS NEEDED FOR SEVERE PAIN Banophen 25 Banophen 25 No Banophen [facility] mg capsule mg capsule 25 mg Me dical capsule indomethaci indomethaci No indomethac [facility] n 25 mg n 25 mg in 25 mg Medic al capsule capsule capsule TAKE 1 TAKE 1 TAKE 1 CAPSULE BY CAPSULE BY CAPSULE BY MOUTH EVERY MOUTH EVERY MOUTH 6 HOURS 6 HOURS EVERY 6 HOURS mometasone mometasone No mometasone [facility] 0.1 % 0.1 % 0.1 % Medical topical topical topical cream cream cream acetaminoph acetaminoph No acetaminop [facility] en 300 en 300 hen 300 Medical mg-codeine mg-codeine mg-codeine 30 mg 30 mg 30 mg tablet TAKE tablet TAKE tablet 1 TABLET BY 1 TABLET BY TAKE 1 MOUTH EVERY MOUTH EVERY TABLET BY 6 HOURS 6 HOURS MOUTH NEEDED FOR NEEDED FOR EVERY 6 SEVERE PAIN SEVERE PAIN HOURS NEEDED FOR SEVERE PAIN Banophen 25 Banophen 25 No Banophen [facility] mg capsule mg capsule 25 mg Me dical capsule indomethaci indomethaci No indomethac [facility] n 25 mg n 25 mg in 25 mg Medic al capsule capsule capsule TAKE 1 TAKE 1 TAKE 1 CAPSULE BY CAPSULE BY CAPSULE BY MOUTH EVERY MOUTH EVERY MOUTH 6 HOURS 6 HOURS EVERY 6 HOURS mometasone mometasone No mometasone [facility] 0.1 % 0.1 % 0.1 % Medical topical topical topical cream cream cream Banophen 25 Banophen 25 No Banophen [facility] mg capsule mg capsule 25 mg Me dical capsule mometasone mometasone No mometasone [facility] 0.1 % 0.1 % 0.1 % Medical topical topical topical cream cream cream prednisone prednisone No prednisone [facility] 10 mg 10 mg 10 mg Medical tablet TAKE tablet TAKE tablet 1 TABLET BY 1 TABLET BY TAKE 1 MOUTH TWICE MOUTH TWICE TABLET BY DAILY FOR 3 DAILY FOR 3 MOUTH DAYS DAYS TWICE DAILY FOR 3 DAYS acetaminoph acetaminoph No acetaminop [facility] en 300 en 300 hen 300 Medical mg-codeine mg-codeine mg-codeine 30 mg 30 mg 30 mg tablet TAKE tablet TAKE tablet 1 TABLET BY 1 TABLET BY TAKE 1 MOUTH EVERY MOUTH EVERY TABLET BY 6 HOURS 6 HOURS MOUTH NEEDED FOR NEEDED FOR EVERY 6 SEVERE PAIN SEVERE PAIN HOURS NEEDED FOR SEVERE PAIN Banophen 25 Banophen 25 No Banophen [facility] mg capsule mg capsule 25 mg Me dical capsule indomethaci indomethaci No indomethac [facility] n 25 mg n 25 mg in 25 mg Medic al capsule capsule capsule TAKE 1 TAKE 1 TAKE 1 CAPSULE BY CAPSULE BY CAPSULE BY MOUTH EVERY MOUTH EVERY MOUTH 6 HOURS 6 HOURS EVERY 6 HOURS mometasone mometasone No mometasone [facility] 0.1 % 0.1 % 0.1 % Medical topical topical topical cream cream cream acetaminoph acetaminoph No acetaminop [facility] en 300 en 300 hen 300 Medical mg-codeine mg-codeine mg-codeine 30 mg 30 mg 30 mg tablet TAKE tablet TAKE tablet 1 TABLET BY 1 TABLET BY TAKE 1 MOUTH EVERY MOUTH EVERY TABLET BY 6 HOURS 6 HOURS MOUTH NEEDED FOR NEEDED FOR EVERY 6 SEVERE PAIN SEVERE PAIN HOURS NEEDED FOR SEVERE PAIN Banophen 25 Banophen 25 No Banophen [facility] mg capsule mg capsule 25 mg Me dical capsule indomethaci indomethaci No indomethac [facility] n 25 mg n 25 mg in 25 mg Medic al capsule capsule capsule TAKE 1 TAKE 1 TAKE 1 CAPSULE BY CAPSULE BY CAPSULE BY MOUTH EVERY MOUTH EVERY MOUTH 6 HOURS 6 HOURS EVERY 6 HOURS mometasone mometasone No mometasone [facility] 0.1 % 0.1 % 0.1 % Medical topical topical topical cream cream cream acetaminoph acetaminoph No acetaminop [facility] en 300 en 300 hen 300 Medical mg-codeine mg-codeine mg-codeine 30 mg 30 mg 30 mg tablet TAKE tablet TAKE tablet 1 TABLET BY 1 TABLET BY TAKE 1 MOUTH EVERY MOUTH EVERY TABLET BY 6 HOURS 6 HOURS MOUTH NEEDED FOR NEEDED FOR EVERY 6 SEVERE PAIN SEVERE PAIN HOURS NEEDED FOR SEVERE PAIN Banophen 25 Banophen 25 No Banophen [facility] mg capsule mg capsule 25 mg Me dical capsule indomethaci indomethaci No indomethac [facility] n 25 mg n 25 mg in 25 mg Medic al capsule capsule capsule TAKE 1 TAKE 1 TAKE 1 CAPSULE BY CAPSULE BY CAPSULE BY MOUTH EVERY MOUTH EVERY MOUTH 6 HOURS 6 HOURS EVERY 6 HOURS mometasone mometasone No mometasone [facility] 0.1 % 0.1 % 0.1 % Medical topical topical topical cream cream cream acetaminoph acetaminoph No acetaminop [facility] en 300 en 300 hen 300 Medical mg-codeine mg-codeine mg-codeine 30 mg 30 mg 30 mg tablet TAKE tablet TAKE tablet 1 TABLET BY 1 TABLET BY TAKE 1 MOUTH EVERY MOUTH EVERY TABLET BY 6 HOURS 6 HOURS MOUTH NEEDED FOR NEEDED FOR EVERY 6 SEVERE PAIN SEVERE PAIN HOURS NEEDED FOR SEVERE PAIN Banophen 25 Banophen 25 No Banophen [facility] mg capsule mg capsule 25 mg Me dical capsule indomethaci indomethaci No indomethac [facility] n 25 mg n 25 mg in 25 mg Medic al capsule capsule capsule TAKE 1 TAKE 1 TAKE 1 CAPSULE BY CAPSULE BY CAPSULE BY MOUTH EVERY MOUTH EVERY MOUTH 6 HOURS 6 HOURS EVERY 6 HOURS mometasone mometasone No mometasone [facility] 0.1 % 0.1 % 0.1 % Medical topical topical topical cream cream cream acetaminoph acetaminoph No acetaminop [facility] en 300 en 300 hen 300 Medical mg-codeine mg-codeine mg-codeine 30 mg 30 mg 30 mg tablet TAKE tablet TAKE tablet 1 TABLET BY 1 TABLET BY TAKE 1 MOUTH EVERY MOUTH EVERY TABLET BY 6 HOURS 6 HOURS MOUTH NEEDED FOR NEEDED FOR EVERY 6 SEVERE PAIN SEVERE PAIN HOURS NEEDED FOR SEVERE PAIN Banophen 25 Banophen 25 No Banophen [facility] mg capsule mg capsule 25 mg Me dical capsule indomethaci indomethaci No indomethac [facility] n 25 mg n 25 mg in 25 mg Medic al capsule capsule capsule TAKE 1 TAKE 1 TAKE 1 CAPSULE BY CAPSULE BY CAPSULE BY MOUTH EVERY MOUTH EVERY MOUTH 6 HOURS 6 HOURS EVERY 6 HOURS mometasone mometasone No mometasone [facility] 0.1 % 0.1 % 0.1 % Medical topical topical topical cream cream cream acetaminoph acetaminoph No acetaminop [facility] en 300 en 300 hen 300 Medical mg-codeine mg-codeine mg-codeine 30 mg 30 mg 30 mg tablet TAKE tablet TAKE tablet 1 TABLET BY 1 TABLET BY TAKE 1 MOUTH EVERY MOUTH EVERY TABLET BY 6 HOURS 6 HOURS MOUTH NEEDED FOR NEEDED FOR EVERY 6 SEVERE PAIN SEVERE PAIN HOURS NEEDED FOR SEVERE PAIN Banophen 25 Banophen 25 No Banophen [facility] mg capsule mg capsule 25 mg Me dical capsule indomethaci indomethaci No indomethac [facility] n 25 mg n 25 mg in 25 mg Medic al capsule capsule capsule TAKE 1 TAKE 1 TAKE 1 CAPSULE BY CAPSULE BY CAPSULE BY MOUTH EVERY MOUTH EVERY MOUTH 6 HOURS 6 HOURS EVERY 6 HOURS mometasone mometasone No mometasone [facility] 0.1 % 0.1 % 0.1 % Medical topical topical topical cream cream cream acetaminoph acetaminoph No acetaminop [facility] en 300 en 300 hen 300 Medical mg-codeine mg-codeine mg-codeine 30 mg 30 mg 30 mg tablet TAKE tablet TAKE tablet 1 TABLET BY 1 TABLET BY TAKE 1 MOUTH EVERY MOUTH EVERY TABLET BY 6 HOURS 6 HOURS MOUTH NEEDED FOR NEEDED FOR EVERY 6 SEVERE PAIN SEVERE PAIN HOURS NEEDED FOR SEVERE PAIN Banophen 25 Banophen 25 No Banophen [facility] mg capsule mg capsule 25 mg Me dical capsule docusate docusate No docusate Randi via sodium 100 sodium 100 sodium 100 Medical mg capsule mg capsule mg capsule TAKE 2 TAKE 2 TAKE 2 CAPSULES BY CAPSULES BY CAPSULES MOUTH AT MOUTH AT BY MOUTH BEDTIME BEDTIME AT BEDTIME ibuprofen ibuprofen No ibuprofen [facility] 600 mg 600 mg 600 mg Medical tablet TAKE tablet TAKE tablet 1 TABLET BY 1 TABLET BY TAKE 1 MOUTH EVERY MOUTH EVERY TABLET BY 6 HOURS 6 HOURS MOUTH NEEDED NEEDED EVERY 6 PAIN. (USE PAIN. (USE HOURS SECOND) SECOND) NEEDED PAIN. (USE SECOND) indomethaci indomethaci No indomethac [facility] n 25 mg n 25 mg in 25 mg Medic al capsule capsule capsule TAKE 1 TAKE 1 TAKE 1 CAPSULE BY CAPSULE BY CAPSULE BY MOUTH EVERY MOUTH EVERY MOUTH 6 HOURS 6 HOURS EVERY 6 HOURS mometasone mometasone No mometasone [facility] 0.1 % 0.1 % 0.1 % Medical topical topical topical cream cream cream acetaminoph acetaminoph No acetaminop [facility] en 300 en 300 hen 300 Medical mg-codeine mg-codeine mg-codeine 30 mg 30 mg 30 mg tablet TAKE tablet TAKE tablet 1 TABLET BY 1 TABLET BY TAKE 1 MOUTH EVERY MOUTH EVERY TABLET BY 6 HOURS 6 HOURS MOUTH NEEDED FOR NEEDED FOR EVERY 6 SEVERE PAIN SEVERE PAIN HOURS NEEDED FOR SEVERE PAIN Banophen 25 Banophen 25 No Banophen [facility] mg capsule mg capsule 25 mg Me dical capsule indomethaci indomethaci No indomethac [facility] n 25 mg n 25 mg in 25 mg Medic al capsule capsule capsule TAKE 1 TAKE 1 TAKE 1 CAPSULE BY CAPSULE BY CAPSULE BY MOUTH EVERY MOUTH EVERY MOUTH 6 HOURS 6 HOURS EVERY 6 HOURS mometasone mometasone No mometasone [facility] 0.1 % 0.1 % 0.1 % Medical topical topical topical cream cream cream Immunizations Ordered Filled Date Status Comments Source Immunization Name Immunization Name TDAP 2016-04-26 Completed [facility] of 00:00:00 [facility] Tdap Tdap Unknown Completed [facility] T[facility] Tdap Unknown Completed [facility] Tdap Tdap Unknown Completed [facility] Tdap Tdap Unknown Completed [facility] Tdap Tdap Unknown Completed [facility] Tdap Tdap Unknown Completed [facility] Tdap Tdap Unknown Completed [facility] Tdap Tdap Unknown Completed [facility] Tdap Tdap Unknown Completed [facility] Tdap Tdap Unknown Completed [facility] Vital Signs Vital Name Observation Time Observation Value Comments Source BP Diastolic 2022-03-24 00:00:00 78 mm[Hg] [facility] Height 2022-03-24 00:00:00 62 [in_i] [facility] BMI (Body Mass 2022-03-24 00:00:00 26.5 kg/m2 [facility] Medical Index) BP Systolic 2022-03-24 00:00:00 116 mm[Hg] [facility] Body Weight 2022-03-24 00:00:00 144.8 [lb_av] [facility] BP Diastolic 2022-02-23 00:00:00 72 mm[Hg] [facility] Height 2022-02-23 00:00:00 62 [in_i] [facility] BMI (Body Mass 2022-02-23 00:00:00 31.2 kg/m2 [facility] Medical Index) BP Systolic 2022-02-23 00:00:00 126 mm[Hg] [facility] Body Weight 2022-02-23 00:00:00 170 [lb_av] [facility] BP Diastolic 2022-02-16 00:00:00 72 mm[Hg] [facility] Height 2022-02-16 00:00:00 62 [in_i] [facility] BMI (Body Mass 2022-02-16 00:00:00 30.5 kg/m2 [facility] Medical Index) BP Systolic 2022-02-16 00:00:00 104 mm[Hg] [facility] Body Weight 2022-02-16 00:00:00 166 [lb_av] [facility] BP Diastolic 2022-02-12 00:00:00 72 mm[Hg] [facility] Height 2022-02-12 00:00:00 62 [in_i] [facility] BMI (Body Mass 2022-02-12 00:00:00 30.4 kg/m2 [facility] Medical Index) BP Systolic 2022-02-12 00:00:00 108 mm[Hg] [facility] Body Weight 2022-02-12 00:00:00 166 [lb_av] [facility] BP Diastolic 2022-02-03 00:00:00 76 mm[Hg] [facility] Height 2022-02-03 00:00:00 62 [in_i] [facility] BMI (Body Mass 2022-02-03 00:00:00 29.8 kg/m2 [facility] Medical Index) BP Systolic 2022-02-03 00:00:00 122 mm[Hg] [facility] Body Weight 2022-02-03 00:00:00 163 [lb_av] [facility] BP Diastolic 2022-01-27 00:00:00 68 mm[Hg] [facility] Height 2022-01-27 00:00:00 62 [in_i] [facility] BMI (Body Mass 2022-01-27 00:00:00 29.6 kg/m2 [facility] Medical Index) BP Systolic 2022-01-27 00:00:00 122 mm[Hg] [facility] Body Weight 2022-01-27 00:00:00 162 [lb_av] [facility] BP Diastolic 2022-01-20 00:00:00 64 mm[Hg] [facility] BP Systolic 2022-01-20 00:00:00 104 mm[Hg] [facility] Body Weight 2022-01-20 00:00:00 162 [lb_av] [facility] BP Diastolic 2022-01-08 00:00:00 74 mm[Hg] [facility] Height 2022-01-08 00:00:00 62 [in_i] [facility] BMI (Body Mass 2022-01-08 00:00:00 27[facility]4 [facility] BP Systolic 2022-01-08 00:00:00 118 mm[Hg] [facility] Body Weight 2022-01-08 00:00:00 150 [lb_av] [facility] BP Diastolic 2021-12-23 00:00:00 72 mm[Hg] [facility] BP Systolic 2021-12-23 00:00:00 106 mm[Hg] [facility] Body Weight 2021-12-23 00:00:00 144 [lb_av] [facility] BP Diastolic 2021-12-09 00:00:00 66 mm[Hg] [facility] Height 2021-12-09 00:00:00 62 [in_i] [facility] BMI (Body Mass 2021-12-09 00:00:00 26 [facility] BP Systolic 2021-12-09 00:00:00 104 mm[Hg] [facility] Body Weight 2021-12-09 00:00:00 142 [lb_av] [facility] BP Diastolic 2021-11-10 00:00:00 60 mm[Hg] [facility] Height 2021-11-10 00:00:00 62 [in_i] [facility] BMI (Body Mass 2021-11-10 00:00:00 25.6 [facility] BP Systolic 2021-11-10 00:00:00 112 mm[Hg] [facility] Body Weight 2021-11-10 00:00:00 140 [lb_av] [facility] BP Diastolic 2021-10-13 00:00:00 78 mm[Hg] [facility] Height 2021-10-13 00:00:00 62 [in_i] [facility] BMI (Body Mass 2021-10-13 00:00:00 25.3 kg/m2 [facility] Medical Index) BP Systolic 2021-10-13 00:00:00 116 mm[Hg] [facility] Body Weight 2021-10-13 00:00:00 138 [lb_av] [facility] BP Diastolic 2021-09-04 00:00:00 66 mm[Hg] [facility] Height 2021-09-04 00:00:00 62 [in_i] [facility] BMI (Body Mass 2021-09-04 00:00:00 23.2 kg/m2 [facility] Medical Index) BP Systolic 2021-09-04 00:00:00 118 mm[Hg] [facility] Body Weight 2021-09-04 00:00:00 127 [lb_av] [facility] BP Diastolic 2021-08-14 00:00:00 72 mm[Hg] [facility] Height 2021-08-14 00:00:00 62 [in_i] [facility] BMI (Body Mass 2021-08-14 00:00:00 22.5 kg/m2 [facility] Medical Index) BP Systolic 2021-08-14 00:00:00 108 mm[Hg] [facility] Body Weight 2021-08-14 00:00:00 122 [lb_av] [facility] BP Diastolic 2021-07-24 00:00:00 64 mm[Hg] [facility] Height 2021-07-24 00:00:00 62 [in_i] [facility] BMI (Body Mass 2021-07-24 00:00:00 22.4 kg/m2 [facility] Medical Index) BP Systolic 2021-07-24 00:00:00 102 mm[Hg] [facility] Body Weight 2021-07-24 00:00:00 122.4 [lb_av] [facility] 2021-07-21 14:01:00 111 mm[Hg] Univer gege of pressure [facility] Diastolic blood 2021-07-21 14:01:00 65 mm[Hg] Unive rsity of pressure [facility] Heart rate 2021-07-21 14:01:00 75 /min [facility]i ty of [facility] Body temperature 2021-07-21 14:01:00 36.39 Yashira Univ ersity of [facility] Respiratory rate 2021-07-21 14:01:00 20 /min Univ ersity of [facility] Body height 2021-07-21 14:01:00 157.5 cm [facility] [place] [facility] [place] Body weight 2021-07-21 14:01:00 53.615 kg [facility] [place] [facility] BMI 2021-07-21 14:01:00 21.62 kg/m2 [facility] Systolic blood 2021-07-21 14:01:00 111 mm[Hg] Univer sity of pressure [facility] Diastolic blood 2021-07-21 14:01:00 65 mm[Hg] Unive rsity of pressure [facility] Heart rate 2021-07-21 14:01:00 75 /min [facility]i [facility] Body temperature 2021-07-21 14:01:00 36.39 Yashira Univ ersity of [facility] Respiratory rate 2021-07-21 14:01:00 20 /min Univ ersity of [facility] Body height 2021-07-21 14:01:00 157.5 cm [facility] [place] [facility] [place] Body weight 2021-07-21 14:01:00 53.615 kg [facility] [place] [facility] [place] BMI 2021-07-21 14:01:00 21.62 kg/m2 [facility] [place] [facility] [place] Procedures Procedure Date / Time Performing Clinician Source Performed [id number] 2022-02-24 00:00:[address] [facility] [id number] 2022-02-24 00:00:00 PACLU.01 [facility] ULTRASOUND RE TO 2022-01-08 00:00:00 [facility] EVALUATION OF UTERUS PER FETUS US, obstetric, 2021-09-04 00:00:00 [facility] maternal evaluation + anatomy unlisted imaging order 2021-07-24 00:00:00 [facility] ABDOMINAL ULTRASOUND OF 2021-07-24 00:00:00 [facility] UTERUS (LESS THAN 14 WEEKS 0 DAYS) SINGLE OR FIRST FETUS GALV ONLY - VAGINAL 2021-07-21 15:06:00 Perez Coon [facility] PATHOGENS BY NUCLEIC Medical Bra [facility] ACID TESTING POCT URINALYSIS 2021-07-21 00:00:00 Mike Greer [facility] 2015-09-18 00:00:00 [facility] Dilation and Curettage 2015-04-26 00:00:00 [facility] Renal Lithotripsy [facility] Cerclage [facility] Plan of Care Planned Activity Planned Date Details Comments Source Diagnostic Test 2022-02-23 00:00:00 [facility] [code = urinalysis, dipstick] Encounters Start End Encounter Admission Attending Care Care Encounter Source Date/Time Date/Time Type Type Clinicians Facility Department ID 2022-02-24 Inpatient EL MYA Feliz [id number] [facility] 09:16:00 [facility] 2022-03-24 2022-03-24 Haylee [facility] [id number] [facility] 00:00:00 00:00:00 Raji Feliz - [facility] MD: 2500 GC_SWOMC_ [facility], Office* [address], [place] [address] , Ph. 2022-03-13 2022-03-13 Outpatient GC_SWHAOMC_ PRIV PRIV 238 [id number] [facility] 00:00:00 00:00:00 Pacheco_L [id number] [facility] 2022-03-13 2022-03-13 Outpatient GC_SWHAOMC_ PRIV PRIV 238 [id number] [facility] 00:00:00 00:00:00 Pacheco_L [id number] [facility] 2022-02-28 2022-02-28 Outpatient GC_SWHAOMC_ PRIV PRIV 238 [id number] [facility] 00:00:00 00:00:00 Pacheco_L [id number] [facility] 2022-02-24 2022-02-25 Inpatient EM MYA Feliz OBPP [id number] [facility] 09:14:00 19:35:00 Haylee [facility] 2022-02-23 2022-02-23 Haylee [facility] 00:00:00 00:00:00 Raji Feliz MD: 7900 GC_SWHAOMC_ Mike Mckeon [place], Office* [address], [place] [address] , Ph. 2022-02-16 2022-02-16 Haylee [facility] 00:00:00 00:00:00 Raji Feliz MD: 7900 GC_NICHAOMC_ Mike Mckeon [place], Office* [address], [place] [address] , Ph. 2022-02-12 2022-02-12 Haylee [facility] 00:00:00 00:00:00 Raji Feliz MD: 7900 GC_NICHAOMC_ Mike Mckeon [place], Office* [address], [place] [address] , Ph. 2022-02-03 2022-02-03 Haylee [facility] 00:00:00 00:00:00 Raji Feliz MD: 7900 GC_SWHAOMC_ Mike Mckeon [place], Office* [address], [place] [address] , Ph. 2022-01-30 2022-01-30 Emergency EM Tray, [facility] [id number] [facility] 18:14:00 21:46:00 Haylee [facility] 2022-01-27 2022-01-27 Haylee [facility] 00:00:00 00:00:00 Raji Feliz MD: 7900 GC_SWHAOMC_ Weldestelle Mckeon [place], Office* [address], [place] [address] , Ph. 2022-01-20 2022-01-20 Outpatient GC_SWHATBIC PRIV PRIV [id number] [facility] 00:00:00 00:00:00 _Pacheco [id number] Medic al 2022-01-20 2022-01-20 Haylee [facility] 00:00:00 00:00:00 Raji Feliz MD: [address] [place], Office* [address] [address] , Ph. 2022-01-14 2022-01-14 Outpatient GC_SWHATBIC PRIV PRIV 238 [id number] [facility] 00:00:00 00:00:00 _Pacheco [id number] Medic al 2022-01-12 2022-01-12 Outpatient GC_SWHATBIC PRIV PRIV 238 [id number] [facility] 00:00:00 00:00:00 _Pacheco [id number] Medic al 2022-01-08 2022-01-08 Outpatient GC_SWHATBIC PRIV PRIV 238 [id number] [facility] 00:00:00 00:00:00 _Pacheco [id number] Medic al 2022-01-08 2022-01-08 Outpatient Feliz, PRIV PRIV [id number] 00:00:00 00:00:00 Haylee [id number] 2022-01-08 2022-01-08 Haylee [facility] 15 [facility] 00:00:00 00:00:00 Raji Feliz MD: [address] [place], Office* [address] [address] , Ph. 2021-12-23 2021-12-23 Outpatient Feliz, PRIV PRIV [id number] 00:00:00 00:00:00 Haylee [id number] 2021-12-23 2021-12-23 Haylee [facility] [id number] [facility] 00:00:00 00:00:00 Raji Feliz MD: [address], Office* [address], [place] [address] , Ph. 2021-12-09 2021-12-09 Haylee [facility] [id number] [facility] 00:00:00 00:00:00 Feliz [facility] MD: 7900 [facility] Mckeon [facility], Office* [address], [place] [address] , Ph. 2021-12-09 2021-12-09 Outpatient Feliz, PRIV PRIV [id number] 00:00:00 00:00:00 Haylee [id number] 2021-11-12 2021-11-12 Outpatient GC_SWHAOMC_ PRIV PRIV [id number] [facility] 00:00:00 00:00:00 Pacheco_L [id number] [facility] 2021-11-10 2021-11-10 Outpatient GC_SWHAOMC_ PRIV PRIV [id number] [facility] 10:44:00 10:44:00 Pacheco_L [id number] [facility] 2021-11-10 2021-11-10 Haylee [facility] [id number] [facility] 7900 GC_ALEKSANDRAOMCAleida Mckeon [place], Office* [address], [place] [address] , Ph. 2021-11-10 2021-11-10 Outpatient Feliz, PRIV PRIV [id number] 00:00:00 00:00:00 Haylee [id number] 2021-10-14 2021-10-14 Outpatient GC_SWHAOMC_ PRIV PRIV 238 [id number] [facility] 04:45:00 04:45:00 Pacheco_L [id number] [facility] 2021-10-14 2021-10-14 Outpatient GC_SWHAOMC_ PRIV PRIV 238 [id number] [facility] 04:45:00 04:45:00 Pacheco_L [id number] [facility] 2021-10-13 2021-10-13 Outpatient GC_SWHAOMC_ PRIV PRIV 238 [id number] [facility] 01:18:00 01:18:00 Pacheco_L [id number] [facility] 2021-10-13 2021-10-13 Haylee [facility] 20 [facility] 00:00:00 00:00:00 Raji Feliz - [facility] MD: 7900 GC_SWHAOMC_ [facility], Office* [address], [place] [address] , Ph. 2021-10-13 2021-10-13 Outpatient Feliz, PRIV PRIV [id number] 00:00:00 00:00:00 Haylee [id number] 2021-10-07 2021-10-07 Outpatient GC_SWHATBIC PRIV PRIV 238 [id number] [facility] 03:06:00 03:06:00 _Pacheco [id number] [facility] 2021-10-07 2021-10-07 Outpatient GC_SWHAOMC_ PRIV PRIV 238 [id number] [facility] 03:06:00 03:06:00 Pacheco_L [id number] [facility] 2021-09-04 2021-09-04 Outpatient GC_SWHAOMC_ PRIV PRIV 238 [id number] [facility] 11:11:00 11:11:00 Pacheco_L [id number] [facility] 2021-09-04 2021-09-04 Outpatient GC_SWHAOMC_ PRIV PRIV 238 [id number] [facility] 11:11:00 11:11:00 Pacheco_L [id number] [facility] 2021-09-04 2021-09-04 Outpatient GC_SWHAOMC_ PRIV PRIV 238 [id number] [facility] 11:11:00 11:11:00 Pacheco_L [id number] [facility] 2021-09-04 2021-09-04 Outpatient GC_SWHAOMC_ PRIV PRIV 238 [id number] [facility] 11:11:00 11:11:00 Pacheco_L [id number] [facility] 2021-09-04 2021-09-04 Haylee [facility] 00:00:00 00:00:00 Tray [facility] MD: 7900 GC_SWHAOMC_ Mike [facility], Office* [address], [place] [address] , Ph. 2021-09-04 2021-09-04 Outpatient Feliz, PRIV PRIV [id number] 00:00:00 00:00:00 Haylee [id number] 2021-08-29 2021-08-29 Outpatient EL Feliz, [facility] [id number] [facility] 08:05:00 08:05:00 Haylee [id number] [facility] 2021-08-29 2021-08-29 Outpatient EL Feliz, [facility] DA[facility] [id number] [facility] 08:05:00 08:05:00 Haylee 37 [facility] 2021-08-29 2021-08-29 Outpatient EL Feliz, [facility] [id number] [facility] 08:05:00 08:05:00 Haylee 37 [facility] 2021-08-18 2021-08-18 Outpatient R ZOEY, [facility] [id number] [facility] 08:15:00 08:15:00 MIKE goldberg [facility] 2021-08-16 2021-08-16 Outpatient GC_SWHAOMC_ PRIV PRIV [id number] [facility] 04:16:00 04:16:00 Pacheco_L [id number] [facility] 2021-08-16 2021-08-16 Outpatient GC_SWHAOMC_ PRIV PRIV 238 [id number] [facility] 04:16:00 04:16:00 Pacheco_L [id number] [facility] 2021-08-15 2021-08-15 Outpatient GC_SWHAOMC_ PRIV PRIV 238 [id number] [facility] 02:20:00 02:20:00 Pacheco_L [id number] [facility] 2021-08-14 2021-08-14 Outpatient GC_SWHAOMC_ PRIV PRIV 238 [id number] [facility] 01:25:00 01:25:00 Pacheco_L [id number] [facility] 2021-08-14 2021-08-14 Haylee [facility] 00:00:00 00:00:00 Raji Feliz MD: [address], Office* [address], [place] [address] , Ph. 2021-08-14 2021-08-14 Outpatient Feliz, PRIV PRIV [id number] 00:00:00 00:00:00 Haylee [id number] 2021-08-13 2021-08-13 Outpatient GC_SWHAOMC_ PRIV PRIV 238 [id number] [facility] 12:42:00 12:42:00 Pacheco_L [id number] [facility] 2021-08-06 2021-08-06 Outpatient GC_SWHATBIC PRIV PRIV 238 [id number] [facility] 11:22:00 11:22:00 _Pacheco [id number] [facility] 2021-08-04 2021-08-04 Outpatient GC_SWHAOMC_ PRIV PRIV 238 [id number] [facility] 12:40:00 12:40:00 Pacheco_L [id number] [facility] 2021-07-25 2021-07-25 Outpatient GC_SWHAOMC_ PRIV PRIV [id number] [facility] 02:55:00 02:55:00 Pacheco_L [id number] [facility] 2021-07-24 2021-07-24 Outpatient GC_SWHAOMC_ PRIV PRIV 238 [id number] [facility] 10:26:00 10:26:00 Pacheco_L [id number] [facility] 2021-07-24 2021-07-24 Outpatient Feliz, PRIV PRIV [id number] 00:00:00 00:00:00 Haylee [id number] 2021-07-24 2021-07-24 Haylee [facility] 00:00:00 00:00:00 Raji Feliz MD: [address] [facility] [address], [place] [address] , Ph. 2021-07-23 2021-07-23 Outpatient GC_SWHAOMC_ PRIV PRIV [id number] [facility] 11:55:00 11:55:00 Pacheco_L [id number] [facility] 2021-07-23 2021-07-23 [facility] 1.2.840.114 [id number] [facility] 00:00:00 00:00:00 Mike Benavides CHANNEL PROCESS SUPERVISOR 350.1.13.10 ity of REGIONAL 4.2.7.2.686 Rolando as MATERNAL [id number] [facility] ical & CHILD [address] [place] [address] 2021-07-22 2021-07-22 Outpatient GC_SWHAOMC_ PRIV PRIV [id number] [facility] 10:45:00 10:45:00 Pacheco_L [id number] [facility] 2021-07-21 2021-07-21 [facility] [id number] Univers 09:00:00 10:01:13 [facility] 2021-07-21 2021-07-21 Office Faculty, Waqar [facility] 1.2 .840.114 [id number] Univers 09:00:00 10:01:13 Visit Luis Corbin CHANNEL PROCESS SUPERVISOR 350.1.13.10 ity of [facility] 4.2.7.2.686 Rolando as MATERNAL [phone] [facility] & [address] 2021-07-21 2021-07-21 [facility] [id number] Univers 09:00:00 10:01:13 [facility] 2021-07-21 2021-07-21 Outpatient [facility] [id number] Univers 09:00:00 10:01:13 [facility] 2021-07-21 2021-07-21 Office Faculty, Waqar Larkinkae [facility] 1.2 .840.114 [id number] Univers 09:00:00 10:01:13 Visit Luis Corbin CHANNEL PROCESS SUPERVISOR 350.1.13.10 ity of REGIONAL 4.2.7.2.686 Rolando as MATERNAL [phone] [facility] ical & CHILD [address] [place] [address] 2021-07-21 2021-07-21 Outpatient _SWHAOM_ PRIV PRIV [id number] [facility] 01:45:00 01:45:00 Pacheco_L [id number] [facility] 2021-07-16 2021-07-16 Abstract Zoey [facility] 1.2.840.114 [id number] Univers 00:00:00 00:00:00 Mike Benavides CHANNEL PROCESS SUPERVISOR 350.1.13.10 ity of REGIONAL 4.2.7.2.686 Rolando as MATERNAL [phone] [facility] ical & CHILD [address] [place] [address] 2021-07-15 2021-07-15 Entry Level Civil Engineer 1, [facility] 1.2. 840.114 [id number] Univers 14:15:00 14:45:00 Visit Jean Bauer CHANNEL PROCESS SUPERVISOR 350.1.13.10 ity of [facility] 4.2.7.2.686 Rolando as MATERNAL [id number] [facility] ical & CHILD [address] [facility] 2021-07-15 2021-07-15 Outpatient Kae BAUER [facility] [id number] Univers 14:15:00 14:15:00 JEAN white [facility] 2021-06-27 2021-06-27 Outpatient Rashi MORIN [facility] [id number] Univers 10:30:00 10:30:00 RONEY white o [facility] 2021-06-27 2021-06-27 Outpatient R ZOEY [facility] [id number] Univers 08:15:00 08:18:38 MIKE goldberg [facility] 2021-06-27 2021-06-27 Entry Level Civil Engineer Lab[facility] 1.2.840. 114 [id number] Univers 08:15:00 08:18:38 Visit Mike Greer CHANNEL PROCESS SUPERVISOR 350.1.13. 10 ity of REGIONAL 4.2.7.2.686 Rolando as MATERNAL [phone] [facility] [address] [place] [address] 2021-06-27 2021-06-27 Outpatient R ZOEY [facility] [id number] Univers 08:15:00 08:15:00 MIKE huiy o f [facility] 2021-06-26 2021-06-26 [facility] [id number] Univers 12:45:00 14:35:18 MIKE huiy o f [facility] 2021-06-26 2021-06-26 [facility] 1.2.803.203 [id number] Univers 12:45:00 14:35:18 Mike Benavides CHANNEL PROCESS SUPERVISOR 350.1.13.10 ity of Visit [facility] 4.2.7.2.686 Rolando as MATERNAL [id number] [facility] & CHILD [address] [place] [address] 2021-06-26 2021-06-26 [facility] [id number] Univers 12:45:00 14:35:18 MIKE white o [facility] 2021-06-26 2021-06-26 Orders Doctor WAN 1.2.840.114 [id number] Univers 00:00:00 00:00:00 Only Unassigned, JYOTSNA 350.1.13.10 ity of [place] [facility] 4.2.7.2.686 Rolando as [id number] [address] 2021-03-06 2021-03-06 [facility] 1.2.934.840 [id number] Univers 10:19:40 10:49:40 Visit Raysa Flores CHANNEL PROCESS SUPERVISOR 350.1.13.10 it y of [facility] 4.2.7.2.686 Rolando as MATERNAL [phone] [facility] & [address] 2021-03-06 2021-03-06 Outpatient Rashi MORALES [facility] [id number] Univers 10:30:00 10:30:00 RAYSA white [facility] 2021-03-06 2021-03-06 Orders Doctor WAN 1.2.840.114 [id number] Univers 00:00:00 00:00:00 Only Unassigned, JYOTSNA 350.1.13.10 ity of [place] [facility] 4.2.7.2.686 Rolando as [id number] [address] 2021-01-13 2021-01-13 Outpatient [facility] [id number] Univers 15:15:00 15:15:00 RONEY white o [facility] 2020-12-27 2020-12-27 Office [facility] 1.2.840.114 [id number] Univers 09:47:46 10:41:43 Visit [facility]ar[facility] CHANNEL PROCESS SUPERVISOR 350.1.13.10 ity of [facility] 4.2.7.2.686 Rolando as MATERNAL [id number] [facility] ical & CHILD [address] [place] [address] 2020-12-27 2020-12-27 [facility] [id number] Univers 10:00:00 10:00:00 RONEY white o [facility] 2020-07-01 2020-07-01 Orders Doctor SOCO 1.2.840.114 [id number] Univers 00:00:00 00:00:00 Only Unassigned, JYOTSNA 350.1.13.10 ity of [place] [facility] 4.2.7.2.686 Rolando as [phone] [address] 2020-06-28 2020-06-28 Case Blaise, [facility] 1.2.326.686 [id number] Univers 00:00:00 00:00:00 Management [facility] 350.1.13.10 it[place] of [place] [id number] [address] 2020-06-28 2020-06-28 Telephone Cameron, [facility] 1.2.840.114 [id number] Univers 00:00:00 00:00:00 [facility] 350.1.13.10 i ty of [place] [id number] [address] 2020-06-18 2020-06-18 Office Res-Colpo/Leep, [facility] UNIVERSI T 1.2.840.114 [id number] Univers 08:17:01 09:16:12 Visit Christiano Bell [facility] 350.1.13.10 ity of [place] [id number] [address] 2020-06-18 2020-06-18 Outpatient R [facility] [id number] Univers 08:00:00 08:00:00 ity of [facility] 2020-06-18 2020-06-18 Orders Doctor SOCO 1.2.840.114 [id number] Univers 00:00:00 00:00:00 Only Unassigned, JYOTSNA 350.1.13.10 ity of [place] [facility] 4.2.7.2.686 Rolando as [id number] [address] 2020-03-10 2020-03-10 Case BlaiseLAZARO 1.2.781.507 [id number] Univers 00:00:00 00:00:00 Management [facility] 350.1.13.10 ity of [place] [id number] [address] 2020-02-15 2020-02-15 Outpatient R [facility] [id number] Univers 10:00:00 10:00:00 ity [facility] 2019-12-29 2019-12-29 Telephone [facility] 1.2.840.114 [id number] Univers 00:00:00 00:00:00 Raysa Flores CHANNEL PROCESS SUPERVISOR 350.1.13.10 it y of REGIONAL 4.2.7.2.686 Rolando as MATERNAL [id number] Med ical & CHILD [address] [place] [address] 2019-12-14 2019-12-14 Office [facility] 1.2.919.385 [id number] Univers 12:45:39 13:00:39 Visit Raysa Flores CHANNEL PROCESS SUPERVISOR 350.1.13.10 it y of REGIONAL 4.2.7.2.686 Rolando as MATERNAL [id number] Med ical & CHILD [address] [place] [address] 2019-12-14 2019-12-14 Outpatient R [facility] [id number] Univers 12:45:00 12:45:00 RAYSASIM white [facility] 2019-12-14 2019-12-14 Out[facility] [id number] Univers 12:45:00 12:45:00 RAYSA christopher [facility] 2019-09-12 2019-09-12 [facility]phone [facility] 1.2.840.114 [id number] Univers 00:00:00 00:00:00 Raysa Flores CHANNEL PROCESS SUPERVISOR 350.1.13.10 it y of [facility] 4.2.7.2.686 Rolando as MATERNAL [phone] Med ical & CHILD [address] [place] [address] 2019-01-09 2019-01-09 Case [facility] 1.2.223.581 [id number] Univers 00:00:00 00:00:00 Management Raysa Flores CHANNEL PROCESS SUPERVISOR 350.1.13.10 ity of [place] [address].7.2.686 Rolando as MATERNAL [id number] Med ical & CHILD [address] [place] [address] 2019-01-04 2019-01-04 Office [facility] 1.2.750.018 [id number] [facility] 08:20:14 09:14:54 Visit Raysa Flores CHANNEL PROCESS SUPERVISOR 350.1.13.10 it y of [facility] 4.7.2.686 Rolando as MATERNAL [phone] Med ical & CHILD [address] [place] [address] 2019-01-04 2019-01-04 Orders Doctor SOCO 1.2.840.114 [id number] Univers 00:00:00 00:00:00 Only Unassigned, JYOTSNA 350.1.13.10 ity of [place] [facility] 4.7.2.686 Rolando as [phone] [address] 2018-12-21 2018-12-21 Office [facility] 1.2.649.635 [id number] Univers 12:45:16 13:34:07 Visit Raysa Flores CHANNEL PROCESS SUPERVISOR 350.1.13.10 it y of [facility] 42.7.2.686 Rolando as MATERNAL [phone] Med ical & CHILD [address] [place] [address] 2018-12-21 2018-12-21 Orders Doctor SOCO 1.2.840.114 [id number] Univers 00:00:00 00:00:00 Only Unassigned, JYOTSNA 350.1.13.10 ity of [place] [facility] 4.2.7.2.686 Rolando as [id number] [facility] [address] Results Test Description Test Time Test Comments Results Result Comments Source HGB HCT 2022-02-25 09:15:00 Test Item Value Reference Range Interpretation Comme nts HEMOGLOBIN (test code = HGB) 11.5 g/dL 10.1-13.8 N HEMATOCRIT (test code = HCT) 35.3 % 32.5-41.8 N AG HEPATITIS B [id number] 13:43:00 Test Item Value Reference Range Interpretation Comments AG HEPATITIS B SURFACE (test code NONREACTIVE NONREACTIVE = HBSAG) AB HEPATITIS C [id number] 13:43:00 Test Item Value Reference Range Interpretation Comments AB HEPATITIS C (test code = NONREACTIVE NONREACTIVE HCVAB) SIGNAL TO CUTOFF (test code = 0.09 <0.80 N CUTOFF) AB [id number] 13:43:00 Test Item Value Reference Range Interpretation Comments AB TREPONEMA (test code = TREPAB) NONREACTIVE NONREACTIVE AB HIV 1 13:43:00 Test Item Value Reference Range Interpretation Comments AB HIV 1 2 (test NONREACTIVE NONREACTIVE [facility] code = [id number]) 4th Gen HIV Ag/Ab Combo Screen CBC W/AUTO [id number] 10:00:00 Test Item Value Reference Range Interpretation Comments WHITE BLOOD CELL (test code = WBC) 17.9 K/mm3 6.5-12.3 H RED BLOOD CELL (test code = RBC) 4.14 M/mm3 3.51-4.69 N HEMOGLOBIN (test code = HGB) 12.5 g/dL 10.1-13.8 N HEMATOCRIT (test code = HCT) 37.1 % 32.5-41.8 N MEAN CELL VOLUME (test code = MCV) 89.6 fL 84.6-96.6 N MEAN CELL HGB (test code = MCH) 30.2 pg 27.3-33.9 N MEAN CELL HGB CONCETRATION (test 33.7 gm/dL 32.0-34.2 N code = MCHC) RED CELL DISTRIBUTION WIDTH (test 14.0 % 12.2-16.3 N code = RDW) PLATELET COUNT (test code = PLT) 187 K/mm3 134-363 N MEAN PLATELET VOLUME (test code = 10.8 fL 9.2-12.7 N MPV) NEUTROPHIL % (test code = NT%) 80.8 % 57.9-77.3 H LYMPHOCYTE % (test code = LY%) 9.5 % 14.5-29.7 L MONOCYTE % (test code = MO%) 6.5 % 3.6-10.2 N EOSINOPHIL % (test code = EO%) 1.7 % 0.0-3.0 N BASOPHIL % (test code = BA%) 0.5 % 0.1-0.9 N NEUTROPHIL # (test code = NT#) 14.5 K/mm3 LYMPHOCYTE # (test code = LY#) 1.7 K/mm3 MONOCYTE # (test code = MO#) 1.2 K/mm3 EOSINOPHIL # (test code = EO#) 0.30 K/mm3 BASOPHIL # (test code = BA#) 0.1 K/mm3 RBC MORPHOLOGY REQUIRED (test code NORMAL NORMAL = RBCM) PLATELET MORPHOLOGY REQUIRED (test NORMAL NORMAL code = PLTMR) Urinalysis macro (dipstick) panel - [id number] 09:28:00 Test Item Value Reference Range Interpretation Comments Leukocytes (test code = Leukocytes) Negative Nitrite (test code = Nitrite) negative Protein (test code = Protein) Negative Glucose (test code = Glucose) Negative [facility] - [id number] 09:28:00 Test Item Value Reference Range Interpretation Comments Leukocytes (test code = Leukocytes) Negative Nitrite (test code = Nitrite) negative Protein (test code = Protein) Negative Glucose (test code = Glucose) Negative [facility]dip[facility] panel - [id number] 13:45:00 Test Item Value Reference Range Interpretation Comments Protein (test code = Protein) Negative Glucose (test code = Glucose) Negative [facility] panel - [id number] 10:52:00 Test Item Value Reference Range Interpretation Comments Protein (test code = Protein) Trace Glucose (test code = Glucose) Negative [facility] panel - [id number] 10:52:00 Test Item Value Reference Range Interpretation Comments Protein (test code = Protein) Trace Glucose (test code = Glucose) Negative [facility] panel - [id number] 14:14:00 Test Item Value Reference Range Interpretation Comments Leukocytes (test code = Leukocytes) 1+ Nitrite (test code = Nitrite) negative Protein (test code = Protein) Trace Glucose (test code = Glucose) Negative [facility]dip[facility] panel - [id number] 14:14:00 Test Item Value Reference Range Interpretation Comments Leukocytes (test code = Leukocytes) 1+ Nitrite (test code = Nitrite) negative Protein (test code = Protein) Trace Glucose (test code = Glucose) Negative [facility] - [id number] 14:14:00 Test Item Value Reference Range Interpretation Comments Leukocytes (test code = Leukocytes) 1+ Nitrite (test code = Nitrite) negative Protein (test code = Protein) Trace Glucose (test code = Glucose) Negative [facility]dip[facility] panel - [id number] 16:39:00 Test Item Value Reference Range Interpretation Comments Protein (test code = Protein) Negative Glucose (test code = Glucose) Negative [facility]dip[facility] panel - [id number] 16:39:00 Test Item Value Reference Range Interpretation Comments Protein (test code = Protein) Negative Glucose (test code = Glucose) Negative [facility]inal[facility] macro (dipstick) panel - [id number] 16:39:00 Test Item Value Reference Range Interpretation Comments Protein (test code = Protein) Negative Glucose (test code = Glucose) Negative [facility]inalysis macro (dipstick) panel - [id number] 16:39:00 Test Item Value Reference Range Interpretation Comments Protein (test code = Protein) Negative Glucose (test code = Glucose) Negative [facility] MedicalStreptococcus agalactiae DNA [Presence] in Specimen by EMILY with probe [id number] 00:00:00 Test Item Value Reference Range Interpretation Comments strep grp.B, DNA (test code = strep negative negative grp.B, DNA) [facility]Streptococcus agalactiae DNA [Presence] in Specimen by EMILY with probe [id number] 00:00:00 Test Item Value Reference Range Interpretation Comments strep grp.B, DNA (test code = strep negative negative grp.B, DNA) [facility] MedicalStreptococcus agalactiae DNA [Presence] in Specimen by EMILY with probe [id number] 00:00:00 Test Item Value Reference Range Interpretation Comments strep grp.B, DNA (test code = strep negative negative grp.B, DNA) [facility] MedicalStreptococcus agalactiae DNA [Presence] in Specimen by EMILY with probe [id number] 00:00:00 Test Item Value Reference Range Interpretation Comments strep grp.B, DNA (test code = strep negative negative grp.B, DNA) [facility]inalysis macro (dipstick) panel - [id number] 09:26:00 Test Item Value Reference Range Interpretation Comments Protein (test code = Protein) Negative Glucose (test code = Glucose) Negative [facility] macro (dipstick) panel - [id number] 09:26:00 Test Item Value Reference Range Interpretation Comments Protein (test code = Protein) Negative Glucose (test code = Glucose) Negative [facility]inalysis macro (dipstick) panel - [id number] 09:26:00 Test Item Value Reference Range Interpretation Comments Protein (test code = Protein) Negative Glucose (test code = Glucose) Negative [facility]inalysis macro (dipstick) panel - [id number] 09:26:00 Test Item Value Reference Range Interpretation Comments Protein (test code = Protein) Negative Glucose (test code = Glucose) Negative [facility] panel - Blood by Automated [id number] 00:00:00 Test Item Value Reference Range Interpretation Comments WBC (test code = WBC) 12.13 x10(3)/uL 4.00-10.10 H RBC (test code = RBC) 3.89 x10(6)/uL 3.58-5.19 HGB (test code = HGB) 11.7 g/dL 11.0-15.5 HCT (test code = HCT) 34.1 % 31.5-44.8 MCV (test code = MCV) 87.7 fL 78.0-98.0 MCH (test code = MCH) 30.1 pg 25.2-32.6 MCHC (test code = MCHC) 34.3 g/dL 31.0-34.7 RDW (test code = RDW) 12.7 % 12.0-15.5 platelet count (test code = 192 x10(3)/uL 140-425 platelet count) MPV (test code = MPV) 11.1 fL 8.6-12.1 [facility] MedicalHIV [facility]+2 Ab+HIV1 p24 Ag [Presence] in Serum or Plasma by [id number] 00:00:00 Test Item Value Reference Range Interpretation Comments HIV Ag/Ab (test code = HIV non-reactive non-reactive Ag/Ab) [facility] panel - Blood by Automated [id number] 00:00:00 Test Item Value Reference Range Interpretation Comments WBC (test code = WBC) 12.13 x10(3)/uL 4.00-10.10 H RBC (test code = RBC) 3.89 x10(6)/uL 3.58-5.19 HGB (test code = HGB) 11.7 g/dL 11.0-15.5 HCT (test code = HCT) 34.1 % 31.5-44.8 MCV (test code = MCV) 87.7 fL 78.0-98.0 MCH (test code = MCH) 30.1 pg 25.2-32.6 MCHC (test code = MCHC) 34.3 g/dL 31.0-34.7 RDW (test code = RDW) 12.7 % 12.0-15.5 platelet count (test code = 192 x10(3)/uL 140-425 platelet count) MPV (test code = MPV) 11.1 fL 8.6-12.1 [facility] MedicalHIV 1+2 Ab+HIV1 p24 Ag [Presence] in Serum or Plasma by [id number] 00:00:00 Test Item Value Reference Range Interpretation Comments HIV Ag/Ab (test code = HIV non-reactive non-reactive Ag/Ab) [facility] panel - Blood by Automated [id number] 00:00:00 Test Item Value Reference Range Interpretation Comments WBC (test code = WBC) 12.13 x10(3)/uL 4.00-10.10 H RBC (test code = RBC) 3.89 x10(6)/uL 3.58-5.19 HGB (test code = HGB) 11.7 g/dL 11.0-15.5 HCT (test code = HCT) 34.1 % 31.5-44.8 MCV (test code = MCV) 87.7 fL 78.0-98.0 MCH (test code = MCH) 30.1 pg 25.2-32.6 MCHC (test code = MCHC) 34.3 g/dL 31.0-34.7 RDW (test code = RDW) 12.7 % 12.0-15.5 platelet count (test code = 192 x10(3)/uL 140-425 platelet count) MPV (test code = MPV) 11.1 fL 8.6-12.1 [facility] MedicalHIV 1+2 Ab+HIV1 p24 Ag [Presence] in Serum or Plasma by [id number] 00:00:00 Test Item Value Reference Range Interpretation Comments HIV Ag/Ab (test code = HIV non-reactive non-reactive Ag/Ab) [facility]inal[facility] macro (dipstick) panel - [id number] 15:19:00 Test Item Value Reference Range Interpretation Comments Leukocytes (test code = Leukocytes) 1+ Nitrite (test code = Nitrite) negative Protein (test code = Protein) Trace Glucose (test code = Glucose) Negative [facility]inal[facility] macro (dipstick) panel - [id number] 15:19:00 Test Item Value Reference Range Interpretation Comments Leukocytes (test code = Leukocytes) 1+ Nitrite (test code = Nitrite) negative Protein (test code = Protein) Trace Glucose (test code = Glucose) Negative [facility] macro (dipstick) panel - [id number] 15:19:00 Test Item Value Reference Range Interpretation Comments Leukocytes (test code = Leukocytes) 1+ Nitrite (test code = Nitrite) negative Protein (test code = Protein) Trace Glucose (test code = Glucose) Negative [facility] MedicalReagin Ab [Presence] in Serum by [id number] 00:00:00 Test Item Value Reference Range Interpretation Comments ethnicity: (test code = not provided ethnicity:) race: (test code = race:) unknown RPR (test code = RPR) non-reactive non-reactive [facility]Reagin Ab [Presence] in Serum by [id number] 00:00:00 Test Item Value Reference Range Interpretation Comments ethnicity: (test code = not provided ethnicity:) race: (test code = race:) unknown RPR (test code = RPR) non-reactive non-reactive [facility]Reagin Ab [Presence] in Serum by [id number] 00:00:00 Test Item Value Reference Range Interpretation Comments ethnicity: (test code = not provided ethnicity:) race: (test code = race:) unknown RPR (test code = RPR) non-reactive non-reactive [facility] MedicalChlamydia trachomatis+Neisseria gonorrhoeae rRNA [Presence] in Urine by [id number] 00:00:00 Test Item Value Reference Range Interpretation Comments aptima combo 2 urine (CT) (test code = CT neg negative aptima combo 2 urine (CT)) aptima combo 2 urine (GC) (test code = GC neg negative aptima combo 2 urine (GC)) [facility]Chlamydia trachomatis+Neisseria gonorrhoeae rRNA [Presence] in Urine by [id number] 00:00:00 Test Item Value Reference Range Interpretation Comments aptima combo 2 urine (CT) (test code = CT neg negative aptima combo 2 urine (CT)) aptima combo 2 urine (GC) (test code = GC neg negative aptima combo 2 urine (GC)) [facility] MedicalChlamydia trachomatis+Neisseria gonorrhoeae rRNA [Presence] in Urine by [id number] 00:00:00 Test Item Value Reference Range Interpretation Comments aptima combo 2 urine (CT) (test code = CT neg negative aptima combo 2 urine (CT)) aptima combo 2 urine (GC) (test code = GC neg negative aptima combo 2 urine (GC)) [facility] macro (dipstick) panel - [id number] 16:48:00 Test Item Value Reference Range Interpretation Comments Leukocytes (test code = Leukocytes) 1+ Nitrite (test code = Nitrite) negative Protein (test code = Protein) Trace Glucose (test code = Glucose) Negative [facility]inal[facility] macro (dipstick) panel - [id number] 16:48:00 Test Item Value Reference Range Interpretation Comments Leukocytes (test code = Leukocytes) 1+ Nitrite (test code = Nitrite) negative Protein (test code = Protein) Trace Glucose (test code = Glucose) Negative [facility]inal[facility] macro (dipstick) panel - [id number] 16:24:00 Test Item Value Reference Range Interpretation Comments Leukocytes (test code = Leukocytes) Negative Nitrite (test code = Nitrite) negative Protein (test code = Protein) Trace Glucose (test code = Glucose) Negative [facility]inal[facility] macro (dipstick) panel - [id number] 16:24:00 Test Item Value Reference Range Interpretation Comments Leukocytes (test code = Leukocytes) Negative Nitrite (test code = Nitrite) negative Protein (test code = Protein) Trace Glucose (test code = Glucose) Negative [facility] macro (dipstick) panel - [id number] 10:11:00 Test Item Value Reference Range Interpretation Comments Protein (test code = Protein) Negative Glucose (test code = Glucose) Negative [facility] panel - Blood by Automated [id number] 00:00:00 Test Item Value Reference Range Interpretation Comments WBC (test code = WBC) 11.2 10 3.7-12.0 RBC (test code = RBC) 3.70 10 3.60-5.50 HGB (test code = HGB) 11.3 g/dL 11.5-15.6 L HCT (test code = HCT) 33.7 % 34.5-46.5 L MCV (test code = MCV) 90.9 um 80.0-102.0 MCH (test code = MCH) 30.5 pg 25.0-34.1 MCHC (test code = MCHC) 33.5 g/dL 29.0-35.0 RDW (test code = RDW) 13.4 % 10.9-16.9 plt (test code = plt) 213 10 136-392 MPV (test code = MPV) 7.8 um 7.4-11.1 gran % (test code = gran %) 81.9 % 36.0-78.0 H lymph % (test code = lymph %) 10.3 % 12.0-48.0 L mono % (test code = mono %) 4.6 % 0.0-13.0 eos % (test code = eos %) 3 % 0-8 baso % (test code = baso %) 0 % 0-2 gran # (test code = gran #) 9.2 10 1.2-6.8 H lymph # (test code = lymph #) 1.2 10 1.2-3.2 mono # (test code = mono #) 0.5 10 0.3-0.8 eos # (test code = eos #) 0.3 10 0.0-0.2 H baso # (test code = baso #) 0.0 10 0.0-0.2 [facility] MedicalGlucose [Mass/volume] in Serum or Plasma --1 hour post dose [id number] 00:00:00 Test Item Value Reference Range Interpretation Comments g.T.T. 1HR(50) (test code = g.T.T. 107 mg/dL <140 1HR(50)) [facility] macro (dipstick) panel - [id number] 16:10:00 Test Item Value Reference Range Interpretation Comments Protein (test code = Protein) Negative Glucose (test code = Glucose) Negative [facility] macro (dipstick) panel - [id number] 09:37:00 Test Item Value Reference Range Interpretation Comments Leukocytes (test code = Leukocytes) Negative Nitrite (test code = Nitrite) negative Protein (test code = Protein) Negative Glucose (test code = Glucose) Negative [facility]COVID 19 Asymptomatic IH [id number] 09:17:00 Test Item Value Reference Range Interpretation Comments COVID 19 NEGATIVE NEGATIVE This test has b een Asymptomatic IH AG authorize d only for the (test code = detection ofpro teins from COVNONPUIAG) SARS-CoV-2, not for any other viruses orpathogens. Ne gative results should be treated as presumptive andconfirmed wi th a molecular assay , if necessary for patientmanageme nt. Negative result s do not rule out COVID- 19 andshould not b e used as the sole basis for treatment orpat ient management deci sions, including infec tion controldecision s. Negative result s should be considered i n thecontext of a patient's recent exposure s, history and thepresence of clinical signs and symptoms consis tent withCOVID-19. T his test has not been FD A cleared or approved; th e test hasbeen authorbronwyn sage by FDA under an Emerge ncy Use Authorization(E UA) for use by cristal blandon certified under the CLIA thatmeet the re quirements to perform mode rate, high or waivedcomple xity tests. This jerzy t is authorized for use at thePoint of Car e (POC), i.e., in patien t care settingsoperati ng under a CLIA Certificat e of Waiver, Certifi inez ofCompliance, o r Certificate of Accreditation. This test is only authori alona for the duration of thedeclaration that circumstances e xist justifying theauthorizatio n of emergency use o f in vitro diagnostic test sfor detection and/o r diagnosis of CO VID-19 under Bwmqhnc19 4(b)(1) of the Act, 21 U.S .C. 360bbb-3(b)(1), unless theauthorizatio n is terminated or r evoked sooner. CBC W/AUTO [id number] 09:01:00 Test Item Value Reference Range Interpretation Comments WHITE BLOOD CELL (test code = WBC) 11.0 K/mm3 6.5-12.3 N RED BLOOD CELL (test code = RBC) 3.78 M/mm3 3.51-4.69 N HEMOGLOBIN (test code = HGB) 11.3 g/dL 10.1-13.8 N HEMATOCRIT (test code = HCT) 34.2 % 32.5-41.8 N MEAN CELL VOLUME (test code = MCV) 90.5 fL 84.6-96.6 N MEAN CELL HGB (test code = MCH) 29.9 pg 27.3-33.9 N MEAN CELL HGB CONCETRATION (test 33.0 gm/dL 32.0-34.2 N code = MCHC) RED CELL DISTRIBUTION WIDTH (test 13.1 % 12.2-16.3 N code = RDW) PLATELET COUNT (test code = PLT) 207 K/mm3 134-363 N MEAN PLATELET VOLUME (test code = 9.0 fL 9.2-12.7 L MPV) NEUTROPHIL % (test code = NT%) 72.6 % 57.9-77.3 N LYMPHOCYTE % (test code = LY%) 15.3 % 14.5-29.7 N MONOCYTE % (test code = MO%) 5.8 % 3.6-10.2 N EOSINOPHIL % (test code = EO%) 5.0 % 0.0-3.0 H BASOPHIL % (test code = BA%) 0.8 % 0.1-0.9 N NEUTROPHIL # (test code = NT#) 8.0 K/mm3 LYMPHOCYTE # (test code = LY#) 1.7 K/mm3 MONOCYTE # (test code = MO#) 0.6 K/mm3 EOSINOPHIL # (test code = EO#) 0.55 K/mm3 BASOPHIL # (test code = BA#) 0.1 K/mm3 RBC MORPHOLOGY REQUIRED (test code NORMAL NORMAL = RBCM) PLATELET MORPHOLOGY REQUIRED (test NORMAL NORMAL code = PLTMR) CBC W Auto Differential panel - [id number] 08:45:00 Test Item Value Reference Range Interpretation Comments white blood cell (test code = 11.0 K/mm3 6.5-12.3 white blood cell) red blood cell (test code = red 3.78 M/mm3 3.51-4.69 blood cell) hemoglobin (test code = 11.3 g/dL 10.1-13.8 hemoglobin) hematocrit (test code = 34.2 % 32.5-41.8 hematocrit) mean cell volume (test code = mean 90.5 fL 84.6-96.6 cell volume) mean cell HGB (test code = mean 29.9 pg 27.3-33.9 cell HGB) mean cell HGB concetration (test 33.0 gm/dL 32.0-34.2 code = mean cell HGB concetration) red cell distribution width (test 13.1 % 12.2-16.3 code = red cell distribution width) platelet count (test code = 207 K/mm3 134-363 platelet count) mean platelet volume (test code = 9.0 fL 9.2-12.7 L mean platelet volume) neutrophil % (test code = 72.6 % 57.9-77.3 neutrophil %) lymphocyte % (test code = 15.3 % 14.5-29.7 lymphocyte %) monocyte % (test code = monocyte 5.8 % 3.6-10.2 %) eosinophil % (test code = 5.0 % 0.0-3.0 H eosinophil %) basophil % (test code = basophil 0.8 % 0.1-0.9 %) neutrophil # (test code = 8.0 K/mm3 neutrophil #) lymphocyte # (test code = 1.7 K/mm3 lymphocyte #) monocyte # (test code = monocyte 0.6 K/mm3 #) eosinophil # (test code = 0.55 K/mm3 eosinophil #) basophil # (test code = basophil 0.1 K/mm3 #) RBC morphology required (test code normal normal = RBC morphology required) platelet morphology required (test normal normal code = platelet morphology required) performing lab: (test code = performing lab:) [facility] [id number] 08:45:00 Test Item Value Reference Range Interpretation Comments covid 19 asymptomatic ih Ag (test negative negative code = covid 19 asymptomatic ih Ag) performing lab: (test code = performing lab:) [facility] complete [facility] - [id number] 00:00:00 Test Item Value Reference Range Interpretation Comments bacteria, urine (test code = none none-few bacteria, urine) blood, urine (test code = negative negative blood, urine) bilirubin, urine (test code = negative negative bilirubin, urine) cast, granular, ur (test code none seen 0-1 = cast, granular, ur) cast, hyaline, urine (test 0-4 0-4 code = cast, hyaline, urine) cast, RBC, urine (test code = none seen 0-1 cast, RBC, urine) character (test code = clear clear character) color (test code = color) yellow yellow, straw, priyank crystal amt. urine (test code none none = crystal amt. urine) crystals urine (test code = none none crystals urine) epithelial cells, ur (test none none-few code = epithelial cells, ur) glucose, urine (test code = negative negative glucose, urine) ketone, urine (test code = negative negative ketone, urine) leukocyte esterase (test code negative negative = leukocyte esterase) nitrites urine (test code = negative negative nitrites urine) pH urine (test code = pH 6.5 5.0-8.0 urine) protein, urine (test code = negative negative protein, urine) RBC, urine (test code = RBC, none seen none seen urine) specific gravity ur (test code 1.014 1.003-1.030 = specific gravity ur) urobilinogen urine (test code 0.2 mg/dL 0.2-1.0 = urobilinogen urine) WBC, urine (test code = WBC, 0-4 0-4 urine) [facility] CenterVaricella zoster virus IgG Ab [Units/volume] in [id number] 00:00:00 Test Item Value Reference Range Interpretation Comments varicella zos.(IgG) >4000.0 See_Comment [Automa carol message] The (test code = varicella syste m which generated zos.(IgG)) this result tra nsmitted reference range : immune>164.9. T he reference range was not used to interpr et this result as normal/abnormal . [facility] MedicalBacteria identified in Urine by [id number] 00:00:00 Test Item Value Reference Range Interpretation Comments culture, urine (test code = see below no growth culture, urine) [facility]Hem[facility] electrophoresis panel in [id number] 00:00:00 Test Item Value Reference Range Interpretation Comments Hb A (test code = 97.4 % 96.7-97.8 Hb A) Hb A2 (test code = 2.6 % 2.2-3.2 Hb A2) Hb C (test code = not detected not detected Hb C) Hb F (test code = not detected See_Comment [Automate d message] Hb F) The system Yelago generated this result transmitted ref erence range: <or=0.5. The reference range was not used to interpr et this result as normal/abnormal . Hb other (test not detected not detected code = Hb other) Hb S (test code = not detected not detected Hb S) [facility] - Serum and [id number] 00:00:00 Test Item Value Reference Range Interpretation Comments WBC (test code = 10.33 x10(3)/uL 4.00-10.10 H WBC) RBC (test code = 3.88 x10(6)/uL 3.58-5.19 RBC) HGB (test code = 12.0 g/dL 11.0-15.5 HGB) HCT (test code = 35.6 % 31.5-44.8 HCT) MCV (test code = 91.8 fL 78.0-98.0 MCV) MCH (test code = 30.9 pg 25.2-32.6 MCH) MCHC (test code = 33.7 g/dL 31.0-34.7 MCHC) RDW (test code = 13.1 % 12.0-15.5 RDW) platelet count (test 242 x10(3)/uL 140-425 code = platelet count) lymphs (test code = 10.1 % 13.7-50.9 L lymphs) monos (test code = 3.8 % 3.0-11.9 monos) eos (test code = 0.2 % 0.0-5.0 eos) basos (test code = 0.6 % 0.0-1.0 basos) MPV (test code = 10.2 fL 8.6-12.1 MPV) polys (test code = 84.9 % 37.1-78.1 H polys) RPR (test code = non-reactive non-reactive RPR) immature 0.4 % 0.0-1.0 granulocytes (test code = immature granulocytes) ABO/Rh blood type B pos (test code = ABO/Rh blood type) antibody screen negative negative (test code = antibody screen) hep. B surf. Ag non-reactive non-reactive (test code = hep. B surf. Ag) rubella,IgG (test 84.7 [IU]/mL See_Comment [Automate d code = rubella,IgG) message] The system which generated this result transmit carol reference range : immune >9.9. Th e reference range was not used to interpret this result as normal/abnormal . [facility]Bacterial vaginosis and vaginitis DNA panel - Vaginal fluid by Probe with signal [id number] 00:00:00 Test Item Value Reference Range Interpretation Comments bacterial vaginosis (test code = bv neg negative bacterial vaginosis) [facility]Urinalysis macro (dipstick) panel - [id number] 09:13:00 Test Item Value Reference Range Interpretation Comments Leukocytes (test code = Leukocytes) Negative Nitrite (test code = Nitrite) negative Protein (test code = Protein) Negative Glucose (test code = Glucose) Negative [facility]inalysis macro (dipstick) panel - [id number] 09:13:00 Test Item Value Reference Range Interpretation Comments Leukocytes (test code = Leukocytes) Negative Nitrite (test code = Nitrite) negative Protein (test code = Protein) Negative Glucose (test code = Glucose) [facility] 2021-08-15 00:00:00 Test Item Value Reference Range Interpretation Comments aptima combo 2 thinprep (CT) (test CT neg negative code = aptima combo 2 thinprep (CT)) aptima combo 2 thinprep (GC) (test GC neg negative code = aptima combo 2 thinprep (GC)) [facility] Medicaltrichomonas vaginalis [facility] ([facility]) 2021-08-15 00:00:00 Test Item Value Reference Range Interpretation Comments trichomonas vaginalis thinprep trich neg negative (test code = trichomonas vaginalis thinprep) [facility] Medicalaptima combo 2 thinprep ([facility]/GC) [facility]) 2021-08-15 00:00:00 Test Item Value Reference Range Interpretation Comments aptima combo 2 thinprep (CT) (test CT neg negative code = aptima combo 2 thinprep (CT)) aptima combo 2 thinprep (GC) (test GC neg negative code = aptima combo 2 thinprep (GC)) [facility] Medicaltrichomonas vaginalis thin prep ([facility]) 2021-08-15 00:00:00 Test Item Value Reference Range Interpretation Comments trichomonas vaginalis thinprep trich neg negative (test code = trichomonas vaginalis thinprep) [facility] 2021-08-15 00:00:00 Test Item Value Reference Range Interpretation Comments darian species (test code = C. spp neg negative darian species) darian glabrata (test code = C. gla neg negative darian glabrata) [facility]HIV [facility] Ab+HIV1 p24 Ag [Presence] in Serum or Plasma by [id number] 00:00:00 Test Item Value Reference Range Interpretation Comments ethnicity: (test code = not provided ethnicity:) race: (test code = race:) unknown HIV Ag/Ab (test code = HIV non-reactive non-reactive Ag/Ab) [facility]Hepatitis C virus Ab [Units/volume] in Serum by Immunoassay 2021-08-14 00:00:00 Test Item Value Reference Range Interpretation Comments ethnicity: (test code = not provided ethnicity:) race: (test code = race:) unknown hep C Ab. (S/co ratio) (test 0.10 S/co <0.80 code = hep C Ab. (S/co ratio)) hep. C Ab. (test code = hep. C non-reactive non-reactive Ab.) [facility] MedicalGlucose [Mass/volume] in Serum or [id number] 00:00:00 Test Item Value Reference Range Interpretation Comments glucose (test code = glucose) 93 mg/dL 70-99 [facility] MedicalCreatinine [Mass/volume] in Serum or [id number] 00:00:00 Test Item Value Reference Range Interpretation Comments creatinine (test code = creatinine) 0.5 mg/dL 0.5-0.9 [facility] MedicalGlucose [Mass/volume] in Serum or [id number] 00:00:00 Test Item Value Reference Range Interpretation Comments glucose (test code = glucose) 93 mg/dL 70-99 [facility] MedicalCreatinine [Mass/volume] in Serum or [id number] 00:00:00 Test Item Value Reference Range Interpretation Comments creatinine (test code = creatinine) 0.5 mg/dL 0.5-0.9 [facility] MedicalPOCT URINALYSIS W SPECIFIC [id number] 14:05:00 Test Item Value Reference Range Interpretation Comments POCT U SP GRAV (test code = . 1.005-1.025 3255) POCT PH U (test code = 3254) 8 mg/dl 5-8 POCT U LEUK EST (test code = negative Negative - Negative 3) POCT U NIT (test code = 3262) negative Negative - Negative POCT U PROT (test code = 3259) trace Negative - Negative POCT U GLU (test code = 3256) normal Negative - Negative POCT U KETONE (test code = 3258) negative Negative - Negative POCT U UROBILI (test code = . 0.2-1 3260) POCT U BILI (test code = 3261) . Negative - Negative POCT U BLD (test code = 3257) negative Negative - Negative POCT U COLOR (test code = 3266) . POCT U APPEAR (test code = 3269) . [facility]
[2022-04-13] MEDS ORDERED: TAMSULOSIN 0.4 MG SR CAP ONE (15:11)
[2022-04-13] MEDS ORDERED: KETOROLAC 30 MG/ML INJ ONE (15:11)
[2022-04-13] MEDS ORDERED: NA CHLORIDE 0.9% 1,000 ML ONE ×2 (15:11→15:51)
[2022-04-13] MEDS ORDERED: PROMETHAZINE INJ 25 MG/ML AMP ONE (15:11)
[2022-04-13 15:44] LABS: Urine Blood Trace-lysed (Negative); Urine Glucose Negative (Negative); Urine Protein 1+ (Negative); Urine Specific Gravity 1.025 (1.005-1.030); Urine pH 6.5 (5.0-7.0)
[2022-04-13 15:55] LABS: Urine Specific Gravity/Preg 1.025 (1.005-1.030)
--- NOTE | 2022-04-13 16:42 | RAD REPORT ---
EXAM DESCRIPTION: CT - Stone Protocol - 04/13/2022 4:30 pm CLINICAL HISTORY: Abdominal pain. Back pain COMPARISON: 2020 TECHNIQUE: Computed axial tomography of the abdomen pelvis was obtained without oral or IV contrast. Lack of IV and oral contrast limits evaluation of solid organs, appendix, bowel, and vessels. Hayden l reformatted images were obtained and reviewed. All CT scans are performed using dose optimization technique as appropriate and may include automated exposure control or mA/KV adjustment according to patient size. FINDINGS: Moderate to marked right hydronephrosis. Marked dilatation right ureter. 5 millimeter calc ulus right UVJ. Small left renal calculi. No hydronephrosis The liver, spleen, pancreas and adrenals appear grossly normal There is no evidence of diverticulitis. Nodules within the subcutaneous fat of the buttocks as well as ischial rectal fossa without significa nt change IMPRESSION: 5 millimeter calculus right UVJ resulting in moderate to marked right hydronephrosis
[2022-04-13] MEDS ORDERED: MORPHINE 2 MG/ML SYR ONE (17:48)
--- NOTE | 2022-04-13 18:05 | ER ---
Nurse's Notes [facility] Name: Manuela Romo Age: 31 yrs Sex: Female : 1990 Arrival Date: 04/13/2022 Time: 14:28 Bed 19 Private MD: Diagnosis: Hydronephrosis with renal and ureteral calculous obstruction-5mm UVJ Presentation: 04/13 14:59 Chief complaint: Patient states: I have a history of kidney stones, I had the flu a jh5 week ago, and I am pretty sure i have a kidney stone it hurts so bad. Coronavirus screen: Vaccine status: Patient reports being unvaccinated. Client denies travel out of the [place] in the last 14 days. Ebola Screen: Patient negative for fever greater than or equal to 101.5 degrees Fahrenheit, and additional compatible Ebola Virus Disease symptoms Patient denies exposure to infectious person. Patient denies travel to an Ebola-affected area in the 21 days before illness onset. Initial Sepsis Screen: Does the patient meet any 2 criteria? No. Patient's initial sepsis screen is negative. Does the patient have a suspected source of infection? No. Patient's initial sepsis screen is negative. Risk Assessment: Do you want to hurt yourself or someone else? Patient reports no desire to harm self or others. Onset of symptoms was April 12, 2022. 14:59 Method Of Arrival: Wheelchair [facility] 14:59 Acuity: PIPPA 3 5 Triage Assessment: 15:02 General: Appears distressed, uncomfortable, slender, Behavior is calm, cooperative, jh5 appropriate for age. Pain: Complains of pain in back. 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 - Social history:: Smoking status: Reported history of juuling and/or vaping. Screenin:00 [facility] ED Fall Risk Assessment (Adult) History of falling in the last 3 months, hb including since admission No falls in past 3 months (0 pts). Abuse screen: Denies threats or abuse. Denies injuries from another. Nutritional screening: No deficits noted. Tuberculosis screening: No symptoms or risk factors identified. Fall Risk Total Wilkes Fall Scale indicates No Risk (0-24 pts). Assessment: 15:45 General: Appears in no apparent distress. ill, Behavior is calm, cooperative. Neuro: hb Level of Consciousness is awake, alert, obeys commands, Oriented to person, place, time, situation. Cardiovascular: Patient's skin is warm and dry. Respiratory: Respiratory effort is even, unlabored, Respiratory pattern is regular, symmetrical. GI: Reports nausea. : Reports right flank pain. EENT: No signs and/or symptoms were reported regarding the EENT system. Derm: Skin is pink, warm \T\ dry. Musculoskeletal: No signs and/or symptoms reported regarding the musculoskeletal system. 17:30 Reassessment: Patient appears in no apparent distress at this time. Patient and/or hb family updated on plan of care and expected duration. Pain level reassessed. Patient is alert, oriented x 3, equal unlabored respirations, skin warm/dry/pink. Vital Signs: 14:59 BP 136 / 109; Pulse 75; Resp 16; Temp 98.6; Pulse Ox 100% ; Weight 63.5 kg; Height 5 [facility] ft. 4 in. (162.56 cm); Pain 10/10; 18:30 BP 124 / 84; Pulse 72; Resp 16; Pulse Ox 99% on R/A; Pain 3/10; hb 14:59 Body Mass Index 24.03 (63.50 kg, 162.56 cm) [facility] ED Course: 14:28 Patient arrived in ED. as 14:30 Estefany Roman FNP-C is [facility]. snw 14:30 Edmund Galo DO is Attending Physician. snw 15:02 Triage completed. 5 15:02 Arm band placed on right wrist. 5 15:36 Vanessa Jackson, RN is Primary Nurse. hb 16:00 Patient has correct armband on for positive identification. hb 16:32 CT Stone Protocol In Process Unspecified. EDMS 18:31 No provider procedures requiring assistance completed. IV discontinued, intact, hb bleeding controlled, No redness/swelling at site. Administered Medications: 15:16 Drug: Ketorolac 30 mg Route: IVP; Site: left antecubital; [facility] 16:10 Follow up: Response: No adverse reaction hb 15:16 Drug: NS 0.9% 1000 ml Route: IV; Rate: 1 bolus; Site: left antecubital; 5 16:30 Follow up: Response: No adverse reaction; IV Status: Completed infusion; IV Intake: hb 1000ml 15:16 Drug: Phenergan (promethazine) 25 mg Route: IM; Site: left deltoid; jh5 16:10 Follow up: Response: No adverse reaction hb 15:16 Drug: Flomax (tamsulosin) 0.4 mg Route: PO; jh5 16:30 Follow up: Response: No adverse reaction hb 15:53 Drug: NS 0.9% 1000 ml Route: IV; Rate: 1 bolus; Site: right antecubital; hb 16:55 Follow up: Response: No adverse reaction; IV Status: Completed infusion; IV Intake: hb 1000ml 17:49 Drug: morphine 2 mg Route: IVP; Infused Over: 4 mins; Site: right antecubital; hb 18:10 Follow up: Response: No adverse reaction hb Medication: 17:30 VIS not applicable for this client. hb Intake: 16:30 IV: 1000ml; Total: 1000ml. hb 16:55 IV: 1000ml; Total: 2000ml. hb Outcome: 18:05 Discharge ordered by . snw 18:31 Discharged to home ambulatory. hb 18:31 Condition: stable 18:31 Discharge instructions given to patient, Instructed on discharge instructions, follow up and referral plans. Demonstrated understanding of instructions, follow-up care, medications, Prescriptions given X 2. 18:31 Patient left the ED. hb Signatures: Dispatcher [employer] EDNH Estefany Roman FNP-C FNP-Suad Briones Heather RN RN Yvonne Urrutia RN RN jh5 Corrections: (The following items were deleted from the chart) 16:00 15:45 : Reports flank pain hb hb
--- NOTE | 2022-04-13 18:05 | EDPHYS ---
Physician Documentation [facility] Name: Manuela Romo Age: 31 yrs Sex: Female : 1990 Arrival Date: 04/13/2022 Time: 14:28 Bed 19 Private MD: ED Physician Edmund Galo HPI: 04/13 15:05 This 31 yrs old Female presents to ER via Wheelchair with complaints of snw Possible Kidney Stone. 15:05 The patient complains of pain in the right mid back and right low back. The pain snw radiates to the right flank. Onset: The symptoms/episode began/occurred suddenly, last night, and became worse this morning. Modifying factors: The symptoms are alleviated by nothing. Associated signs and symptoms: Pertinent positives: nausea, vomiting. Severity of pain: At its worst the pain was moderate. The patient has experienced similar episodes in the past, several times, with the last episode occurring last year. The patient has not recently seen a physician. had a baby last month, + . 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 - Social history:: Smoking status: Reported history of juuling and/or vaping. ROS: 15:03 Constitutional: Negative for fever, chills, and weight loss, Eyes: Negative for injury, snw pain, redness, and discharge, ENT: Negative for injury, pain, and discharge, Neck: Negative for injury, pain, and swelling, Cardiovascular: Negative for chest pain, palpitations, and edema, Respiratory: Negative for shortness of breath, cough, wheezing, and pleuritic chest pain, Abdomen/GI: Negative for abdominal pain, nausea, vomiting, diarrhea, and constipation. 15:03 Abdomen/GI: Negative for abdominal pain, diarrhea, and constipation, + nausea and vomiting prior to arrival MS/Extremity: Negative for injury and deformity, Skin: Negative for injury, rash, and discoloration, Neuro: Negative for headache, weakness, numbness, tingling, and seizure, Psych: Negative for depression, anxiety, suicide ideation, homicidal ideation, and hallucinations. 15:03 Back: Positive for pain at rest, flank pain. 15:03 : Positive for small amounts. Exam: 15:03 Constitutional: This is a well developed, well nourished patient who is awake, alert, snw and in no acute distress. Head/Face: Normocephalic, atraumatic. Eyes: Pupils equal round and reactive to light, extra-ocular motions intact. Lids and lashes normal. Conjunctiva and sclera are non-icteric and not injected. Cornea within normal limits. Periorbital areas with no swelling, redness, or edema. ENT: Nares patent. No nasal discharge, no septal abnormalities noted. Tympanic membranes are normal and external auditory canals are clear. Oropharynx with no redness, swelling, or masses, exudates, or evidence of obstruction, uvula midline. Mucous membranes moist. Neck: Trachea midline, no thyromegaly or masses palpated, and no cervical lymphadenopathy. Supple, full range of motion without nuchal rigidity, or vertebral point tenderness. No Meningismus. Chest/axilla: Normal chest wall appearance and motion. Nontender with no deformity. No lesions are appreciated. Cardiovascular: Regular rate and rhythm with a normal S1 and S2. No gallops, murmurs, or rubs. Normal PMI, no JVD. No pulse deficits. Respiratory: Lungs have equal breath sounds bilaterally, clear to auscultation and percussion. No rales, rhonchi or wheezes noted. No increased work of breathing, no retractions or nasal flaring. Abdomen/GI: Soft, non-tender, with normal bowel sounds. No distension or tympany. No guarding or rebound. No evidence of tenderness throughout. Skin: Warm, dry with normal turgor. Normal color with no rashes, no lesions, and no evidence of cellulitis. MS/ Extremity: Pulses equal, no cyanosis. Neurovascular intact. Full, normal range of motion. Neuro: Awake and alert, GCS 15, oriented to person, place, time, and situation. Cranial nerves II-XII grossly intact. Motor strength 5/5 in all extremities. Sensory grossly intact. Cerebellar exam normal. Normal gait. Psych: Awake, alert, with orientation to person, place and time. Behavior, mood, and affect are within normal limits. 15:03 Back: pain, that is moderate, that is severe, of the right mid back, CVA tenderness, that is mild, is noted on the right. Vital Signs: 14:59 BP 136 / 109; Pulse 75; Resp 16; Temp 98.6; Pulse Ox 100% ; Weight 63.5 kg; Height 5 jh5 ft. 4 in. (162.56 cm); Pain 10/10; 18:30 BP 124 / 84; Pulse 72; Resp 16; Pulse Ox 99% on R/A; Pain 3/10; hb 14:59 Body Mass Index 24.03 (63.50 kg, 162.56 cm) jh5 MDM: 14:57 Patient medically screened. snw 18:06 Data reviewed: vital signs, nurses notes. Data interpreted: Pulse oximetry: on room air snw is 100 %. Interpretation: normal. Counseling: I had a detailed discussion with the patient and/or guardian regarding: the historical points, exam findings, and any diagnostic results supporting the discharge/admit diagnosis, the presence of at least one elevated blood pressure reading (>120/80) during this emergency department visit, lab results, radiology results, the need for outpatient follow up, to return to the emergency department if symptoms worsen or persist or if there are any questions or concerns that arise at home. Response to treatment: the patient's symptoms have markedly improved after treatment. Special discussion: Based on the patient's Hx, exam, and Dx evaluation, there is no indication for emergent surgery or inpatient Tx. It is understood by the patient/guardian that if the Sx's persist or worsen they need to return immediately for re-evaluation. Based on the history and exam findings, there is no indication for further emergent testing or inpatient evaluation. I discussed with the patient/guardian the need to see the primary care provider for further evaluation of the symptoms. I discussed with the patient/guardian the need to see the urologist for further evaluation of the symptoms. 04/13 15:44 Order name: Urine Dipstick-Ancillary; Complete Time: 15:45 EDMS 04/13 15:45 Order name: Urine --Ancillary (enter results); Complete Time: 16:00 em1 04/13 16:01 Order name: CT Stone Protocol; Complete Time: 16:43 snw 04/13 14:57 Order name: Urine Dipstick-Ancillary (obtain specimen); Complete Time: 15:44 snw 04/13 14:57 Order name: Urine Test (obtain specimen); Complete Time: 15:44 snw 04/13 18:05 Order name: Recheck VS snw Administered Medications: 15:16 Drug: Ketorolac 30 mg Route: IVP; Site: left antecubital; jh5 16:10 Follow up: Response: No adverse reaction hb 15:16 Drug: NS 0.9% 1000 ml Route: IV; Rate: 1 bolus; Site: left antecubital; jh5 16:30 Follow up: Response: No adverse reaction; IV Status: Completed infusion; IV Intake: hb 1000ml 15:16 Drug: Phenergan (promethazine) 25 mg Route: IM; Site: left deltoid; jh5 16:10 Follow up: Response: No adverse reaction hb 15:16 Drug: Flomax (tamsulosin) 0.4 mg Route: PO; jh5 16:30 Follow up: Response: No adverse reaction hb 15:53 Drug: NS 0.9% 1000 ml Route: IV; Rate: 1 bolus; Site: right antecubital; hb 16:55 Follow up: Response: No adverse reaction; IV Status: Completed infusion; IV Intake: hb 1000ml 17:49 Drug: morphine 2 mg Route: IVP; Infused Over: 4 mins; Site: right antecubital; hb 18:10 Follow up: Response: No adverse reaction hb Disposition: 22:04 Co-signature as Attending Physician, Edmund OLIVO was immediately available on-site ms3 in the Emergency Department for consultation in the care of the patient. . Disposition Summary: 04/13/22 18:05 Discharge Ordered Location: Home snw Condition: Stable snw Diagnosis - Hydronephrosis with renal and ureteral calculous obstruction - 5mm UVJ snw Followup: snw - With: Emergency Department - When: As needed - Reason: Worsening of condition Followup: snw - With: Private Physician - When: 2 - 3 days - Reason: Recheck today's complaints, Continuance of care, Re-evaluation by your physician Discharge Instructions: - Discharge Summary Sheet snw - Kidney Stones snw - Hydronephrosis snw - Dietary Guidelines to Help Prevent Kidney Stones snw - Rehydration, Adult snw Forms: - Medication Reconciliation Form snw - Thank You Letter snw - Antibiotic Education snw - Prescription Opioid Use snw - Family Work Release hb Prescriptions: - Mobic 7.5 mg Oral Tablet - take 1 tablet by ORAL route once daily take with food; 20 tablet; Refills: 0, snw Product Selection Permitted - promethazine 25 mg Oral Tablet - take 1 tablet by ORAL route every 6 hours As needed; 20 tablet; Refills: 0, snw Product Selection Permitted Signatures: Dispatcher [employer] EDEstefany Wilson, MEDICAL ASSEMBLER-C MEDICAL ASSEMBLER-Csnw Vanessa Jackson, RN RN Edmund Galo DO DO ms3 Yvonne Urrutia, RN RN jh5
[2022-04-13 18:48] VITALS: TEMP 98.6
[2022-04-13 18:56] VITALS: BP 124/84; O2SAT 99
== END 2022-04-13 18:31 | disposition home or self-care (01) ==
LOC: ER 14:25
DX: N13.2 Hydronephrosis with renal and ureteral calculous obstruction (principal); Z87.442 Personal history of urinary calculi
CPT/HCPCS: 74176; 76377; 81003; 81025; 96372; 99283; J2270; J2550; J7030